=== PATIENT | female | born 1945 | race Caucasian/White ===

== ENCOUNTER 2019-09-04 09:46 | Inpatient (IN) ==
--- NOTE | 2019-08-24 12:17 | PAT Medication Instructions ---
Medication Instructions Date of Service August 24, 2019 Home Medications Purelife Keto 1 tab PO QPM aspirin [Aspirin Low Dose] 81 mg PO QAM duloxetine 30 mg PO QAM ergocalciferol (vitamin D2) [Vitamin D2] 1,250 mcg PO MONTHLY levothyroxine 100 mcg PO QAM losartan 25 mg PO QAM metformin 1,000 mg PO BID multivitamin 1 tab PO QAM omega 2-ekj-vgr-fish oil [Fish Oil] 1 cap PO DAILY omeprazole 20 mg PO QAM ropinirole 0.5 mg PO HS trazodone 50 mg PO HS PRN ASK your prescriber and surgeon aspirin [Aspirin Low Dose] 81 mg PO QAM STOP taking 2 weeks before surgery (or as soon as possible if surgery is within 2 weeks) Purelife Keto 1 tab PO QPM omega 0-sxw-xzi-fish oil [Fish Oil] 1 cap PO DAILY STOP taking 24 hours before surgery ropinirole 0.5 mg PO HS DO NOT take the morning of surgery ergocalciferol (vitamin D2) [Vitamin D2] 1,250 mcg PO MONTHLY losartan 25 mg PO QAM metformin 1,000 mg PO BID multivitamin 1 tab PO QAM Take morning of surgery With a small sip of water, OTHERWISE NOTHING TO EAT OR DRINK AFTER MIDNIGHT: duloxetine 30 mg PO QAM levothyroxine 100 mcg PO QAM omeprazole 20 mg PO QAM Take evening before surgery metformin 1,000 mg PO BID trazodone 50 mg PO HS PRN (if needed) Other Notes If you have any questions please call us at [phone] or [phone] or [phone] or [phone]
--- NOTE | 2019-08-25 12:10 | Anesthesiology Consultation ---
Date of Service August 25, 2019 Assessment & Plan (1) Encounter for pre-operative examination: Chart Review Chart Review: Acceptable Risk for Surgery and Patient seen in Pre Admission Testing 2016 ECHO showed moderate right to left shunt- has not followed up with cardio since that time but states PCP is aware (no mention is PCP note of PFO). Dis cussed with Dr. Eastman who recommended cardio clearance prior to surgery Pt had left TKA 05/04/19 at [facility]- post op day #1 become confused and lethargic. Found to be hypotensive with KAIDEN - admitted to ICU x 7 days. Per records- cause of hypotension unknown but patient feels it was related to being over medicated with blood pressure and pain medications. Per patient- was given BP meds pre operatively and perioperatively as well as pain medications. Pt anxious about upcoming surgery and would like caution used with both BP meds and pain meds. Seen by PCP 08/21/19= " medically optimized for surgery". Educated on BMI. Type II DM- A1C at goal. Depression stable. HTN at goal. Dysplipidemia- not on statin. Hypothyroidism- euthyroid, Barretts- stable Pt again seen by PCP 08/26/19= for LE edema- occurring to bilateral feet- worse in evening. No chest pain, dyspnea. No pitting edema. Lungs clear. Encouraged LE elevation, compression stockings and Lasix x five days- will follow up with PCP if not improving Consults Requested cardiac (secondary to moderate right to left shunt on 2015 ECHO ) Teaching & Discussion Pre-Anesthesia Teaching/Discussion Notes: Instructed NPO after midnight before surgery,except medications with 15 cc of water. Medication instructions provided according to the PAT guidelines. History Surgery Operation Date: 09/04/19 12:45 Proposed Procedures p L2-S1 Decompression Fusion, Spinal Cord Monitoring - Serg Jacome DO Height/Weight Height: 4 ft 10 in Weight: 91.4 kg Allergies Allergy/AdvReac Type Severity Reaction Status Date / Time niacin Allergy Intermediate HIVES Verified 06/07/15 09:42 morphine Allergy Mild NAUSEA/VOMI Verified 08/24/19 10:29 TING/HIVES codeine Allergy Unknown HIVES Unverified 06/07/15 09:42 Medications Home Medications Medication Instructions Recorded Confirmed Last Taken Purelife Keto 1 tab PO QPM 08/24/19 08/24/19 Unknown aspirin [Aspirin Low Dose] 81 mg PO QAM 08/24/19 08/24/19 Unknown duloxetine 30 mg PO QAM 08/24/19 08/24/19 Unknown ergocalciferol (vitamin D2) 1,250 mcg PO MONTHLY 08/24/19 08/24/19 Unknown [Vitamin D2] levothyroxine 100 mcg PO QAM 08/24/19 08/24/19 Unknown losartan 25 mg PO QAM 08/24/19 08/24/19 Unknown metformin 1,000 mg PO BID 08/24/19 08/24/19 Unknown multivitamin 1 tab PO QAM 08/24/19 08/24/19 Unknown omega 5-hkw-lbr-fish oil [Fish Oil] 1 cap PO DAILY 08/24/19 08/24/19 Unknown omeprazole 20 mg PO QAM 08/24/19 08/24/19 Unknown ropinirole 0.5 mg PO HS 08/24/19 08/24/19 Unknown trazodone 50 mg PO HS PRN 08/24/19 08/24/19 Unknown Past Medical History Medical History (Updated 08/26/19 @ 16:08 by Elayne Lanza PA-C) Cardiac murmur History of- no murmur noted at PAT visit on 08/25/19 Chronic back pain Degenerative disc disease Depression Diabetes mellitus, type 2 NIDDM GERD (gastroesophageal reflux disease) Barretts- Stable and controlled Hiatal hernia History of anesthesia reaction Questionable reaction: Pt had Left TKA May 04, 2019 at [facility]- did well with anesthesia but post op day 1 pt became hypotensive which caused ARF- spent 1 week post op in ICU- confused with decreased alertness x 20 hours. Kidney function returned to normal prior to discharge to rehab. No current BP issues. Anesthesia records shows no post op complications. Remains unclear what caused hypotension (pt concerned about BP and pain meds) History of bleeding ulcers ~2013- no issues since Hyperlipidemia Diet controlled Hypertension Hypothyroidism IBS (irritable bowel syndrome) Osteoarthritis Restless leg syndrome Exercise / Class Metabolic Activity III < 4 Walking/Shop/Light housework (Uses walker to ambulate - no chest pain or SOB with flat surfaces ) Past Family History Family History (Updated 08/24/19 @ 10:56 by Krystal Bautista RN) Mother FHx: renal cell carcinoma FHx: uterine cancer Other No family history of adverse response to anesthesia Past Surgical History Surgical History (Updated 08/24/19 @ 10:54 by Krystal Bautista RN) History of appendectomy History of cataract surgery bilateral History of cholecystectomy History of colonoscopy History of esophagogastroduodenoscopy (EGD) History of total hip arthroplasty bilateral History of total knee replacement Bilateral S/P epidural steroid injection Past Anesthesia History No Hx of Anesthesia Complications (with exception to hypotension episode post op day #1 from left TKA ) and No Family Hx of Anesthesia Complications (with exception to mother - aggressive with morphine ) History of PONV No Hx of PONV and No Hx of Motion Sickness Social History Smoking Status: Former smoker (Light smoker x several years ) tobacco type: cigarettes Do You Dip or Chew Tobacco: No Smoking End Date: 1967 Hx Alcohol Use: Yes Alcohol type: wine alcohol intake frequency: holidays/special occasions only Hx Substance Use: No substance use type: does not use Review of Systems Increased LE edema- bilateral LEs. No significant SOB. Mild productive cough. Reflux- well controlled and stable Hx of blood transfusion- s/p D&C 35 years ago Patient denies chest pain, shortness of breath, dyspnea on exertion, wheezing, palpitations. No hx of seizures, stroke, SD, apnea/snoring. No hx of blood clots. No recent steroid use Physical Exam Vital Signs VITALS BP 110/75 P 92 TEMP 98.0 SP02 96% RESP 16 Constitutional + morbidly obese; no acute distress ENMT Mouth: + dentures and + small oral opening; no TMJ clicking, no chipped teeth and no loose teeth Thyromental Distance: < 3.5 Finger Breadths (3.0) Mallampati Class: II Full upper dentures Neck + short neck; neck extension not limited Respiratory normal respiratory effort; no respiratory distress Auscultation: lungs clear to auscultation bilaterally; no wheezes Cardiovascular Rate/Rhythm: regular rate and regular rhythm Heart Sounds: no murmur Vessels: no carotid bruit Extremities: + edema (1+ pitting edema to bilateral feet- no erythema, warmth. Calf squeeze neg) Musculoskeletal Spine: no pain with cervical ROM Neurologic moves all extremities Psychiatric Orientation: alert Testing Laboratory Results 08/25/19 11:29 PT 10.8 Seconds (9.0-12.0) 08/25/19 11:29 INR 1.1 (0.9-1.1) 08/25/19 11:29 APTT 26.0 Seconds (21.0-31.0) 08/25/19 11:29 Urine Color Yellow 08/25/19 11:29 Urine Appearance Clear (Clear) 08/25/19 11:29 Urine pH 5.0 (4.5-7.5) 08/25/19 11:29 Ur Specific [place] 1.019 (1.000-1.030) 08/25/19 11:29 Urine Protein Negative (Negative) 08/25/19 11:29 Urine Glucose (UA) Negative (Negative) 08/25/19 11:29 Urine Ketones Negative (Negative) 08/25/19 11: Urine Nitrite Negative (Negative) 08/25/19 11: Ur Leukocyte Esterase Negative (Negative) 08/25/19 11:29 Blood Type O Negative 08/25/19 11:29 Antibody Screen NEGATIVE 08/25/19 11:29 07/28/19= SODIUM: 140 POTASSIUM: 4.6 CHLORIDE: 100 CO2: 26 BUN: 9 CREATININE: 0.6 GLUCOSE: 167 HGB A1C= 7.0 TSH= 4.25 (pt had med adjustments) Electrocardiogram Date: 05/06/19 SR with 1st degree AVB. Inferior infarct (EKG from 2013 included- by personal visual comparison- EKG's similiar in appearance showing possible inferior infarct. Has had subsequent ECHO in 2016 without noted issues) Chest X-Ray Date: 08/25/19 Findings: + NAD Echocardiogram Date: 01/18/16 EF: 60% LV Function: normal RWMA: + none Grade I diastolic dysfunction. Atrial septal aneurysm. Moderate right to left shunt through the patent foramen ovale at rest by saline contrast injection. Focal thickening of the posterior mitral valve leaflet. Mild MR/TR.
--- NOTE | 2019-08-25 13:09 | XRay Report ---
XR chest Pre-admission PA/Lat CLINICAL HISTORY: pat preoperative COMPARISON STUDY: 03/03/2013 FINDINGS: The bones soft tissues and hemidiaphragms are normal. The cardiomediastinal silhouette is n ormal. The lungs are clear. The pulmonary vasculature is normal. IMPRESSION: Negative chest. ACT 112: Negative or not required by law. The above report was generated using voice recognition software. It may contain grammatical, syntax or spelling errors. Electronically signed by: Danilo Decker M.D. 08/25/2019 1:08 PM
[2019-08-25 13:53] LABS: Appearance Urine Clear (Clear); Basophils # (auto) 0.03 K/uL (0-0.2); Basophils % (auto) 0.6 %; Bilirubin Urine Negative (Negative); Blood Urine Negative (Negative); Color Urine Yellow; Eosinophils # (auto) 0.08 K/uL (0-0.5); Eosinophils % (auto) 1.7 %; Glucose Urine UA Negative (Negative); Hematocrit (blood only) 41.6 % (37-47); Hemoglobin 13.7 g/dL (12.0-16.0); Immature Granulocytes # (auto) 0.05 K/uL (0.00-0.02); Ketones Urine Negative (Negative); Leukocyte Esterase Urine Negative (Negative); Lymphocytes # (auto) 1.68 K/uL (1.2-3.4); Lymphocytes % (auto) 34.9 %; Mean Corpuscular Hemoglobin 28.5 pg (25-34); Mean Corpuscular Hgb Conc 32.9 g/dL (32-36); Mean Corpuscular Volume 86.5 fL (80-100); Mean Platelet Volume 10.3 fL (7.4-10.4); Monocytes # (auto) 0.41 K/uL (0.11-0.59); Monocytes % (auto) 8.5 %; Neutrophils # (auto) 2.57 K/uL (1.4-6.5); Neutrophils % (auto) 53.3 %; Nitrite Urine Negative (Negative); Platelet Count 185 K/uL (130-400); Protein Urine Negative (Negative); RDW Coefficient of Variation 14.7 % (11.5-14.5); RDW Standard Deviation 46.7 fL (36.4-46.3); Red Blood Count 4.81 M/uL (4.2-5.4); Specific Gravity Urine 1.019 (1.000-1.030); Urobilinogen Urine Negative (Negative); White Blood Count 4.82 K/uL (4.8-10.8)
[2019-08-25 14:04] LABS: INR 1.1 (0.9-1.1); Prothrombin Time 10.8 Seconds (9.0-12.0)
[~2019-09-04 09:46] MED LIST: ACETAMINOPHEN 500 MG TAB PO SCH; CEFAZOLIN 2000MG 2,000 MG/15 ML SYR IV SCH; CeleBREX 200 MG CAP PO SCH; GABAPENTIN 300 MG CAP PO SCH; LR 15ML/HR IV SCH
[2019-09-04] MEDS ORDERED: PROPOFOL IV EMULSION 10 MG/ML 20 ML VIAL IV ONE (11:18)
[2019-09-04] MEDS ORDERED: NEOSTIGMINE METHYLSULFATE 1 MG/ML 10ML VIAL ONE (11:18)
[2019-09-04] MEDS ORDERED: ONDANSETRON INJ 2 MG/ML 2 ML VIAL ONE (11:18)
[2019-09-04] MEDS ORDERED: GLYCOPYRROLATE 0.2 MG/ML VIAL ONE (11:18)
[2019-09-04] MEDS ORDERED: MIDAZOLAM HCL 1 MG/ML 2ML VIAL ONE (11:18)
[2019-09-04] MEDS ORDERED: fentaNYL citrate 100 MCG/2 ML VIAL ONE ×3 (11:18→15:36)
[2019-09-04] MEDS ORDERED: DEXAMETHASONE SOD INJ 4 MG/ML VIAL ONE (11:18)
[2019-09-04] MEDS ORDERED: LIDOCAINE HCL 2% 2 ML VIAL/AMP(20MG/ML) INFIL ONE (11:18)
[2019-09-04] MEDS ORDERED: ePHEDrine sulfate 50 MG/ML AMP IV PRN (11:22)
[2019-09-04] MEDS ORDERED: ONDANSETRON INJ 2 MG/ML 2 ML VIAL IV PRN ×2 (11:22→16:45)
[2019-09-04] MEDS ORDERED: fentaNYL citrate 100 MCG/2 ML VIAL IV PRN (11:22)
[2019-09-04] MEDS ORDERED: ATROPINE SULFATE 0.1 MG/ML 10ML SYR IV PRN (11:22)
--- NOTE | 2019-09-04 11:26 | History & Physical Bridge Note ---
Date of Service September 04, 2019 History & Physical Bridge Note I have examined the patient, reviewed the History & Physical and in the interval since the performance of the History & Physical I have noted the following changes of clinical significance: no changes noted
--- NOTE | 2019-09-04 11:27 | History & Physical Report ---
Date of Service September 04, 2019 Assessment & Plan (1) Neurogenic claudication due to lumbar spinal stenosis: L2-S1 decompression fusion Present on Admission?: Yes History of Present Illness Chief Complaint: Back and leg pain Primary Care Provider: Gregory Howard MD This is a 73-year-old female who presents with chronic persistent back and bilateral leg pain. After failing extensive course of nonoperative care she is here for surgical intervention. Allergies Allergy/AdvReac Type Severity Reaction Status Date / Time niacin Allergy Intermediate HIVES Verified 09/04/19 10:21 morphine Allergy Mild NAUSEA/VOMI Verified 09/04/19 10:21 TING/HIVES codeine Allergy Unknown HIVES Unverified 09/04/19 10:21 Home Medications Home Medications Medication Instructions Recorded Confirmed Type Purelife Keto 1 tab PO QPM 08/24/19 09/04/19 History aspirin [Aspirin Low Dose] 81 mg PO QAM 08/24/19 09/04/19 History duloxetine 30 mg PO QAM 08/24/19 09/04/19 History ergocalciferol (vitamin D2) 1,250 mcg PO MONTHLY 08/24/19 09/04/19 History [Vitamin D2] levothyroxine 100 mcg PO QAM 08/24/19 09/04/19 History losartan 25 mg PO QAM 08/24/19 09/04/19 History metformin 1,000 mg PO BID 08/24/19 09/04/19 History multivitamin 1 tab PO QAM 08/24/19 09/04/19 History omega 3-fwm-znl-fish oil [Fish Oil] 1 cap PO DAILY 08/24/19 09/04/19 History omeprazole 20 mg PO QAM 08/24/19 09/04/19 History ropinirole 0.5 mg PO HS 08/24/19 09/04/19 History trazodone 50 mg PO HS PRN 08/24/19 09/04/19 History Past Med/Surg History Medical History (Updated 09/04/19 @ 11:27 by Serg Jacome DO) Cardiac murmur History of- no murmur noted at PAT visit on 08/25/19 Chronic back pain Degenerative disc disease Depression Diabetes mellitus, type 2 NIDDM GERD (gastroesophageal reflux disease) Barretts- Stable and controlled Hiatal hernia History of anesthesia reaction Questionable reaction: Pt had Left TKA May 04, 2019 at [facility]- did well with anesthesia but post op day 1 pt became hypotensive which caused ARF- spent 1 week post op in ICU- confused with decreased alertness x 20 hours. Kidney function returned to normal prior to discharge to rehab. No current BP issues. Anesthesia records shows no post op complications. Remains unclear what caused hypotension (pt concerned about BP and pain meds) History of bleeding ulcers ~2013- no issues since Hyperlipidemia Diet controlled Hypertension Hypothyroidism IBS (irritable bowel syndrome) Osteoarthritis Restless leg syndrome Surgical History (Updated 08/24/19 @ 10:54 by Krystal Bautista RN) History of appendectomy History of cataract surgery bilateral History of cholecystectomy History of colonoscopy History of esophagogastroduodenoscopy (EGD) History of total hip arthroplasty bilateral History of total knee replacement Bilateral S/P epidural steroid injection Family History (Updated 08/24/19 @ 10:56 by Krystal Bautista RN) Mother FHx: renal cell carcinoma FHx: uterine cancer Other No family history of adverse response to anesthesia Social History Preferred Language: Bolivian Communication Ability: Effective Mortar Mixer Required: No Beliefs That Will Affect Care: None Current Living Situation: Alone Other Information That Helps Us Care for You: No Feels Safe at Home: Yes Safety Concerns: Feels Safe At This Time Smoking Status: Former smoker (Light smoker x several years ) Tobacco Type: cigarettes ; Do You Dip or Chew Tobacco: No ; Smoking End Date: 1967 ; Second Hand Exposure: Yes (hx) ; Tobacco Cessation Education Requested by Patient: No Hx Alcohol Use: Yes Alcohol type: wine Hx Substance Use: No Physical Exam Physical Exam: Patient is alert and oriented neurologically intact. Results & Data Vital Signs (Past 12 Hours) Vital Signs Temp Pulse Resp BP Pulse Ox 09/04/19 10:28 36.7 C 85 18 145/82 H 95
[2019-09-04] MEDS ORDERED: BUPIVACAINE/EPINEPHRINE 0.5% MPF 1:200,000 10 ML VIAL ONE (11:43)
[2019-09-04] MEDS ORDERED: BACITRACIN INJ 50,000 UNIT VIAL ONE (11:44)
[2019-09-04] MEDS ORDERED: FLOSEAL HEMOSTATIC MATRIX 10ML TOP ONE (13:04)
[2019-09-04] MEDS ORDERED: ROCURONIUM BROMIDE 10 MG/ML 5 ML VIAL ONE (13:08)
[2019-09-04] MEDS ORDERED: ePHEDrine sulfate 50 MG/ML SYR ONE (13:34)
[2019-09-04] MEDS ORDERED: PHENYLEPHRINE 100MCG/ML 5ML SYR ONE (13:34)
[2019-09-04] MEDS ORDERED: PHENYLEPHRINE HCL 10 MG/ML VIAL ONE (13:34)
[2019-09-04] MEDS ORDERED: ALBUMIN HUMAN 5% 12.5 GM/250 ML VIAL IV ONE (14:21)
--- NOTE | 2019-09-04 15:13 | Operative Report ---
Post Operative Report Pre & Post Diagnosis Operation Date: 09/04/19 12:05 Pre-Op Diagnosis: Neurogenic Claudication Due To Lumbar Spinal Stenosis Post-Op Diagnosis: Neurogenic Claudication Due To Lumbar Spinal Stenosis I identified the patient and participated in the time-out.: Yes Procedure Operation Date: 09/04/19 12:05 Actual Procedures #1 lumbar decompression with bilateral medial facetectomies and foraminotomies L2-3, L3-4, L4-5, L5-S1. #2 posterior spinal fusion L2-3, L3-4, L4-5, L5-S1. #3 posterior segmental instrumentation L2-S1. #4 interbody fusion L5-S1. #5 placed a peek cage 11 x 22 mm at L5-S1 vertebra 6 placement locally harvested morselized autograft in the posterior lateral gutters. #7 placement infuse collagen sponge, master graft in the posterior lateral gutters and ostial amp interbody space. Surgeon Serg Jacome, DO Independent Contractor Lupillo Reyna Estimated Blood Loss 500 Findings See Below Patient is 4 feet 11 inches tall weighing over 88 kg with a BMI in excess of 39. The patient's body habitus did add significant technical difficulty throughout the procedure requiring her deepest retractors and longest instruments in order to perform her surgery. She will also require additional follow-up in light of concerns of her healing. This added at least 50% increase to the operative time. Specimens None Indications This is a 73-year-old female who presents above-mentioned diagnosis after failing extensive course of nonoperative care she is here for surgical int ervention. Description of Procedure Patient was met with identified informed consent obtained. Patient was then taken to the operative suite underwent an patient placed in a prone position the Quirino table on top of the Phillip frame. All bony prominences well-padded eyes inspected to ensure no external pressure placed upon the. This point the lumbar spine was prepped and draped in normal sterile fashion. Sharp dissection with the assistance of Bovie cautery performed down to and exposing the lamina and transverse processes of L2 L3-L4-L5 and sacral ala bilaterally. From a caudal cephalad fashion complete laminectomy of L5 L4 L3 and L2 was performed including bilateral medial facetectomies and foraminotomies addressing severe spinal dede nosis. Pedicle screws were then placed in L2 L3-L4-L5 and S1 levels bilaterally with assistance of fluoroscopy the proper sized kodi placed. Believe a trans- foramen approach and left complete discectomy of L5-S1 was performed endplates curetted to subcortical bleeding bone and a 11 x 22 mm peek cage filled with osteo-bone graft tapped in position. The rods were then locked into final position bilaterally. The transverse processes of L2 L3-L4-L5 and the sacral ala burred to subcortical bleeding bone. Infuse collagen sponge master graft local autograft was placed in the posterior gutters. 15 round ADRIAN drain inserted. The incision was then closed with 1 Vicryl in the fascia 2-0 Vicryl subcutaneously and 4 Monocryl for final skin closure. Steri-Strip sterile dressings placed. Patient will continue PACU stable addition. Please note Lupillo Reyna was present at the entire procedure involved the patient positioning complex portions of the surgery and final skin closure. Lastly spi nal cord monitoring was utilized that the procedure no changes noted. I attest to the content of the Intraoperative Record and any orders documented therein. Any exceptions are noted below.
--- NOTE | 2019-09-04 15:36 | Fluoroscopy Report ---
FL lumbar spine 2-3V CLINICAL HISTORY: L2-S1 DECOMPRESSION FUSION COMPARISON STUDY: Lumbar spine MRI December 06, 2007. FLUOROSCOPY TIME: 36 seconds. FLUOROSCOPIC IMAGES: 3 FINDINGS: Exact numbering is difficult on this exam. There is multilevel discectomy with posterior de compression and 5 level bilateral pedicle screw fusion. Hardware is intact. There are no unexpected r adiopaque foreign bodies. IMPRESSION: Fluoroscopy provided for discectomy and multilevel fusion, as described above. ACT 112: Negative or not required by law. Electronically signed by: Slick Moore M.D. 09/04/2019 3:35 PM
--- NOTE | 2019-09-04 16:24 | Anesthesiology Progress Note ---
Date of Service September 04, 2019 Anesthesia Post Procedure Vital Signs Vital Signs: Temp Pulse Pulse Resp BP BP Pulse Ox 09/04/19 16:20 36.7 C 88 16 102/70 96 09/04/19 16:10 91 H 16 116/88 95 09/04/19 16:00 86 16 107/83 97 09/04/19 15:50 84 16 120/87 98 09/04/19 15:42 36.3 C L 80 16 123/59 L 98 09/04/19 10:28 36.7 C 85 18 145/82 H 95 Pain Intensity Back: Pain Intensity: 3 Transfer of Care Handoff Completed per policy Notes Mental Status: alert / awake / arousable Patient Amnestic to Procedure: Yes Nausea / Vomiting: adequately controlled Pain: adequately controlled Airway Patency, RR, SpO2: stable & adequate BP & HR: stable & adequate Hydration State: stable & adequate Anesthetic Complications: no major complications apparent
[2019-09-04] MEDS ORDERED: bisacodyL 10 MG SUPP PR PRN (16:45)
[2019-09-04] MEDS ORDERED: METOCLOPRAMIDE HCL INJ 5 MG/ML 2 ML VIAL IV PRN (16:45)
[2019-09-04] MEDS ORDERED: FAMOTIDINE 20 MG TAB PO PRN (16:45)
[2019-09-04] MEDS ORDERED: NALOXONE HCL 0.4 MG/1 ML VIAL/CARP IV PRN (16:45)
[2019-09-04] MEDS ORDERED: ALUMINUM/MAGNESIUM SUSP 30 ML UDC PO PRN (16:45)
[2019-09-04] MEDS ORDERED: TRAZODONE HCL 50 MG TAB PO PRN (16:45)
[2019-09-04] MEDS ORDERED: ONDANSETRON 4 MG OD TAB PO PRN (16:45)
[2019-09-04] MEDS ORDERED: MAGNESIUM HYDROXIDE SUSP 30 ML UDC PO PRN (16:45)
[2019-09-04] MEDS ORDERED: DO NOT ADMINISTER FLU VACCINE PRN (16:45)
[2019-09-04] MEDS ORDERED: SOD PHOSPHATE/SOD BIPHOSPHATE ENEMA 132 ML BTL PR PRN (16:45)
[2019-09-04] MEDS ORDERED: LORazepam 0.5 MG/1 ML VIAL IV PRN (16:45)
[2019-09-04] MEDS ORDERED: ACETAMINOPHEN 1,000 MG/100 ML VIAL IV PRN (16:45)
[2019-09-04] MEDS ORDERED: HYDROmorphone INJ 0.5 MG/0.5 ML SYR IV PRN (16:45)
[2019-09-04] MEDS ORDERED: HYDROmorphone INJ 1 MG/ML SYRINGE IV PRN (16:45)
[2019-09-04] MEDS ORDERED: LORazepam 0.5 MG TAB PO PRN (16:45)
[2019-09-04] MEDS ORDERED: PROMETHAZINE HCL 12.5 MG in SODIUM CHLORIDE 0.9% 50 ML IV PRN (16:45)
[2019-09-04] MEDS ORDERED: DO NOT ADMINISTER PNEUMOCOCCAL VACCINE PRN (16:45)
[2019-09-04] MEDS: OXYCODONE HCL IR 5 MG TAB (IMMEDIATE RELEASE) PO PRN (17:07)
[2019-09-04] MEDS ORDERED: SODIUM CHLORIDE 0.9% 1000ML 1,000 ML IV SCH (17:15)
--- NOTE | 2019-09-04 17:30 | Hospitalist Consultation ---
Date of Consultation September 04, 2019 Assessment & Plan (1) Neurogenic claudication due to lumbar spinal stenosis: Status post L2-S1 decompression fusion POD# 0 Tolerated procedure well Pain control and bowel regimen by orthopedics Activity and wound care, by orthopedics DVT prophylaxis by orthopedics - patient on aspirin for history of PFO, recommended by cardiology on preop eval - strict DVT prophylaxis needed -Monitor H&H, for postop blood loss anemia -Monitor hemodynamic status (2) DVT prophylaxis: History of PFO At home on aspirin Per cardiology preop eval, strict DVT prophylaxis needed Aspirin ordered, currently using SCDs -further DVT ppx per orthopedic service (3) GERD (gastroesophageal reflux disease): History of Benites's esophagus - at home on omeprazole, will switch to pantoprazole while inpt (4) History of bleeding ulcers: No current issues, continue PPI (5) Diabetes mellitus, type 2: Seems to be well controlled on metformin at home -We will continue to monitor, and place on sliding scale insulin (6) Hypertension: Previously on lisinopril, recently switched to losartan due to insomnia believed to be secondary to lisinopril -Blood pressure currently on lower side -We will hold losartan for now, will evaluate in the morning (7) Hypothyroidism: - Continue home levothyroxine -No current issues (8) Hyperlipidemia: Did not tolerate statin in the past, currently diet controlled (9) BMI 39.0-39.9,adult: -Lifestyle changes encouraged (10) Depression: -Continue home duloxetine, no current issues Thank you for this consultation. We will follow the patient with you during their hospital stay. You can reach a member of the [facility] Hospitalist Team 28/01 via pager @ [phone]. History of Present Illness Reason for Consultation: Post-op medical management Requesting Physician: Dr. Serg Jacome Attending Physician: William Mix MD History of Present Illness 73-year-old morbidly obese female, with history of hypothyroidism, hyperlipidemia, hypertension, Benites's esophagus, depression, and longstanding history of back pain and bilateral lower extremity pain/weakness, who presented for surgical treatment of her neurogenic claudication. Patient is now status post L2-S1 decompression fusion, tolerated procedure well. Prior to procedure, she underwent preop evaluation by cardiology, echocardiogram was obtained at that time. Patient has a history of a PFO and has been on aspirin, per cardiology recommendation, strict DVT prophylaxis is needed. Her other chronic medical conditions seems to be well controlled. Patient takes duloxetine for depression, and currently denies any issues with that. For diabetes, she is on metformin and says that she is well controlled. For hyperlipidemia she was started on statin in the past but did not tolerate, and therefore is only diet controlled. For hypertension patient was on lisinopril, however reported insomnia from lisinopril, and was recently switched to losartan. Patient says that she has not had any issues with insomnia since then. Patient also has history of restless leg syndrome, currently denies any symptoms. Patient is currently lying in bed, in no acute distress, comfortable. Her son is at the bedside. Patient denies any chest pain, shortness of breath, abdominal pain, nausea or vomiting. She also denies any lightheadedness or dizziness. She has some postoperative back pain, however currently seems to be well-controlled. She is able to move her lower extremities, there is no sensory loss noted. Allergies Allergy/AdvReac Type Severity Reaction Status Date / Time niacin Allergy Intermediate HIVES Verified 09/04/19 10:21 morphine Allergy Mild NAUSEA/VOMI Verified 09/04/19 10:21 TING/HIVES codeine Allergy Unknown HIVES Unverified 09/04/19 10:21 Home Medications Home Medications Medication Instructions Recorded Confirmed Type Purelife Keto 1 tab PO QPM 08/24/19 09/04/19 History aspirin [Aspirin Low Dose] 81 mg PO QAM 08/24/19 09/04/19 History duloxetine 30 mg PO QAM 08/24/19 09/04/19 History ergocalciferol (vitamin D2) 1,250 mcg PO MONTHLY 08/24/19 09/04/19 History [Vitamin D2] levothyroxine 100 mcg PO QAM 08/24/19 09/04/19 History losartan 25 mg PO QAM 08/24/19 09/04/19 History metformin 1,000 mg PO BID 08/24/19 09/04/19 History multivitamin 1 tab PO QAM 08/24/19 09/04/19 History omega 4-[id number]-egw-fish oil [Fish Oil] 1 cap PO DAILY 08/24/19 09/04/19 History omeprazole 20 mg PO QAM 08/24/19 09/04/19 History ropinirole 0.5 mg PO HS 08/24/19 09/04/19 History trazodone 50 mg PO HS PRN 08/24/19 09/04/19 History Patient History Medical History Cardiac murmur History of- no murmur noted at PAT visit on 08/25/19 Chronic back pain Degenerative disc disease Depression Diabetes mellitus, type 2 NIDDM GERD (gastroesophageal reflux disease) Barretts- Stable and controlled Hiatal hernia History of anesthesia reaction Questionable reaction: Pt had Left TKA May 04, [address] [facility]- did well with anesthesia but post op day 1 pt became hypotensive which caused ARF- spent 1 week post op in ICU- confused with decreased alertness x 20 hours. Kidney function returned to normal prior to discharge to rehab. No current BP issues. Anesthesia records shows no post op complications. Remains unclear what caused hypotension (pt concerned about BP and pain meds) History of bleeding ulcers ~2013- no issues since Hyperlipidemia Diet controlled Hypertension Hypothyroidism IBS (irritable bowel syndrome) Osteoarthritis Restless leg syndrome Surgical History History of appendectomy History of cataract surgery bilateral History of cholecystectomy History of colonoscopy History of esophagogastroduodenoscopy (EGD) History of total hip arthroplasty bilateral History of total knee replacement Bilateral S/P epidural steroid injection Family History Mother FHx: renal cell carcinoma FHx: uterine cancer Other No family history of adverse response to anesthesia Social History Preferred Language: Arabic Communication Ability: Effective Alteration Hand Required: No Beliefs That Will Affect Care: None Current Living Situation: Alone Other Information That Helps Us Care for You: No Feels Safe at Home: Yes Safety Concerns: Feels Safe At This Time Smoking Status: Former smoker (Light smoker x several years ) Tobacco Type: cigarettes ; Do You Dip or Chew Tobacco: No ; Smoking End Date: 1966 ; Second Hand Exposure: Yes (hx) ; Tobacco Cessation Education Requested by Patient: No Hx Alcohol Use: Yes Alcohol type: wine Hx Substance Use: No Review of Systems Review of Systems: All systems reviewed & are unremarkable except as noted in HPI & below Constitutional: no fever and no chills Respiratory: no cough and no dyspnea Cardiovascular: no chest pain, no palpitations and no edema Gastrointestinal: no abdominal pain, no nausea and no vomiting Physical Exam Physical Exam: Elderly obese female lying in bed, in NAD Constitutional: well developed, well nourished and + morbidly obese; not ill appearing Eyes: PERRL, conjunctivae normal, anicteric sclerae EOM intact bilaterally ENMT: external ear and nose normal, oropharynx normal Neck: normal visual inspection Respiratory: normal respiratory effort, lungs clear to auscultation normal respiratory effort Auscultation: no crackles, no rales, no rhonchi and no wheezes Cardiovascular: RRR, no murmur, no edema Chest (Breasts): Chest: normal inspection of chest Gastrointestinal (Abdomen): Inspection/Auscultation: abdomen normal to inspection and normal bowel sounds; abdomen not distended Percussion/Palpation: abdomen soft and + hernia; abdomen nontender and no guarding obese Musculoskeletal: Head/Neck/Chest: + head abnormal to inspection, nor mocephalic, head atraumatic and neck supple Extremities: extremities normal to inspection moves extremities spontaneously Skin: no rashes, warm and dry Neurologic: PERRL, EOMI, accommodation nl, no face palsy, no dysarthria moves all extremities Psychiatric: A+Ox3, euthymic affect Genitourinary: Benito catheter placed, drains clear yellow urine Results & Data ([facility]) Vital Signs (Past 12 Hours) Vital Signs Temp Pulse Pulse Pulse Resp BP BP 09/04/19 17:10 36.3 C L 84 16 118/75 09/04/19 16:35 36.5 C 86 14 134/82 09/04/19 16:20 36.7 C 88 16 102/70 09/04/19 16:10 91 H 16 116/88 09/04/19 16:00 86 16 107/83 09/04/19 15:50 84 16 120/87 09/04/19 15:42 36.3 C L 80 16 123/59 L 09/04/19 10:28 36.7 C 85 18 145/82 H Pulse Ox 09/04/19 17:10 100 09/04/19 16:35 98 09/04/19 16:20 96 09/04/19 16:10 95 09/04/19 16:00 97 09/04/19 15:50 98 09/04/19 15:42 98 09/04/19 10:28 95 Laboratory Results 09/04/19 09/04/19 09/04/19 Range/Units 15:44 10:14 10:12 POC Glucose 218 H 241 H (70-99) mg/dl Blood Type O Negative Antibody Screen NEGATIVE Crossmatch See Detail Medications Administered Current Inpatient Medications Acetaminophen (Tylenol) 1,000 mg PO PREOP JENNIFER Stop: 09/04/19 18:00 Last Admin: 09/04/19 10:46 Dose: 1,000 mg Documented by: Acetaminophen (Tylenol) 1,000 mg PO Q8H PRN PRN Reason: MILD Pain Scale 1,2,3 & Pre PT Stop: 10/04/19 16:44 Al Hydrox/Mg Hydrox/Simethicone (Maalox) 30 ml PO Q6H PRN PRN Reason: Dyspepsia Stop: 10/04/19 16:44 Aspirin (Ecotrin Ectab) 81 mg PO QAM [facility] Stop: 10/05/19 08:59 Bisacodyl (Dulcolax) 10 mg AR DAILY PRN PRN Reason: Constipation Stop: 10/04/19 16:44 Celecoxib (Celebrex) 200 mg PO PREOP [facility] Stop: 09/04/19 18:00 Last Admin: 09/04/19 10:47 Dose: 200 mg Documented by: Diphenhydramine HCl (Benadryl Capsule) 25 mg PO Q6H PRN PRN Reason: Allergic Rhinitis/Insomnia Stop: 10/04/19 16:44 Duloxetine HCl (Cymbalta) 30 mg PO QAM [facility] Stop: 10/05/19 08:59 Famotidine (Pepcid) 20 mg PO Q12H PRN PRN Reason: Dyspepsia Stop: 10/04/19 16:44 Gabapentin (Neurontin) 300 mg PO PREOP JENNIFER Stop: 09/04/19 18:00 Last Admin: 09/04/19 10:47 Dose: 300 mg Documented by: Hydromorphone HCl (Dilaudid) 0.5 mg IV Q3H PRN PRN Reason: MOD pain (scale 4-6) & Pre PT Stop: 09/18/19 16:44 Hydromorphone HCl (Dilaudid) 1 mg IV Q3H PRN PRN Reason: severe pain (scale 7-10) Stop: 09/18/19 16:44 Hydroxyzine HCl (Vistaril) 25 mg PO Q8H PRN PRN Reason: Anxiety Stop: 10/04/19 16:44 Lactated Ringer's (Lr) 1,000 mls @ 15 mls/hr IV .Q24H JENNIFER Stop: 09/05/19 05:59 Last Infusion: 09/04/19 12:06 Dose: Infused Documented by: Cefazolin Sodium (Ancef 2000mg) 2,000 mg in 15 mls @ 3.75 mls/min IV PREOP JENNIFER; Protocol Stop: 09/04/19 18:00 Last Admin: 09/04/19 12:06 Dose: 3.75 mls/min Documented by: Promethazine HCl 12.5 mg/ (Sodium Chloride) 50.5 mls @ 204 mls/hr IV Q6H PRN PRN Reason: Nausea &/or Vomiting Stop: 10/04/19 16:44 Lorazepam (Ativan) 0.5 mg in 1 mls @ 0.5 mls/min IV Q8H PRN PRN Reason: Sedation/Anxiety Stop: 10/04/19 16:44 Sodium Chloride (Nss 1000ml) 1,000 mls @ 100 mls/hr IV .Q10H JENNIFER Stop: 10/04/19 17:14 Last Admin: 09/04/19 17:13 Dose: 100 mls/hr Documented by: Acetaminophen (Ofirmev) 1,000 mg in 100 mls @ 400 mls/hr IV Q8H PRN PRN Reason: MILD Pain Rating 1,2,3 Stop: 09/05/19 16:44 Cefazolin Sodium (Ancef 2000mg) 2,000 mg in 15 mls @ 3.75 mls/min IV Q8H JENNIFER; Protocol Stop: 09/05/19 04:03 Influenza Virus Vaccine Quadrival (Flu Vaccine, Do Not Administer) 1 ea N/A PRN PRN PRN Reason: Notification Stop: 10/04/19 16:44 Levothyroxine Sodium (Synthroid) 100 mcg PO DAILYBB JENNIFER Stop: 10/05/19 06:29 Lorazepam (Ativan) 0.5 mg PO Q8H PRN PRN Reason: Sedation/Anxiety Stop: 10/04/19 16:44 Losartan Potassium (Cozaar) 25 mg PO QAM [facility] Stop: 10/05/19 08:59 Magnesium Hydroxide (Milk Of Magnesia) 30 ml PO DAILY PRN PRN Reason: Constipation Stop: 10/04/19 16:44 Metoclopramide HCl (Reglan) 10 mg IV Q6H PRN PRN Reason: Nausea &/or Vomiting Stop: 10/04/19 16:44 [facility]it[facility]amin Tab) [facility]: 10/05/19 08:59 Naloxone HCl (Narcan) 0.1 mg IV Q5M PRN; Protocol PRN Reason: Oversedation/Resp Depression Stop: 10/04/19 16:44 Non-Formulary Medication ([facility]eprazole) [facility] Stop: 10/05/19 08:59 Ondansetron HCl (Zofran) 4 mg IV Q6H PRN PRN Reason: Nausea &/or Vomiting Stop: 10/04/19 16:44 Ondansetron HCl (Zofran Odt) 4 mg PO Q6H PRN PRN Reason: Nausea Stop: 10/04/19 16:44 Oxycodone HCl (Roxicodone Immediate Rel) 5 - 10 mg PO Q4H PRN PRN Reason: Moderate-Severe Pain & Pre PT Stop: 09/18/19 16:44 Last Admin: 09/04/19 17:07 Dose: 10 mg Documented by: Pneumococcal Polyvalent Vaccine (Pneumococcal Vacc, Do Not Administer) 1 ea N/A PRN PRN PRN Reason: Notification Stop: 10/04/19 16:44 Polyethylene Glycol (Miralax Powder Packet) 17 gm PO Q6 [facility] Stop: 10/05/19 05:59 Ropinirole HCl (Requip) 0.5 mg PO HS [facility] Stop: 10/04/19 20:59 Senna/Docusate Sodium (Senokot S) 2 tab PO HS [facility] Stop: 10/04/19 20:59 Sodium Biphosphate/Sodium Phosphate (Fleet Enema) 132 ml AR ONE PRN PRN Reason: Constipation Stop: 10/04/19 16:44 Tramadol HCl (Ultram) 50 - 100 mg PO Q4H PRN PRN Reason: Moderate-Severe Pain & Pre PT Stop: 10/04/19 16:44 Trazodone HCl (Desyrel) 50 mg PO HS PRN PRN Reason: Insomnia Stop: 10/04/19 16:44
[2019-09-04] MEDS ORDERED: DEXTROSE 50% 50 ML SYRINGE IV PRN (17:34)
[2019-09-04] MEDS ORDERED: GLUCAGON FOR INJ 1 MG VIAL SQ PRN (17:34)
[2019-09-04] MEDS ORDERED: GLUCOSE 10 TABS/TUBE PO PRN (17:34)
[2019-09-04] MEDS ORDERED: CARBOHYDRATES FOR HYPOGLYCEMIA PO PRN (17:34)
[2019-09-04] MEDS ORDERED: GLUCOSE 40% GEL 15 GM TUBE PO PRN (17:34)
[2019-09-04] MEDS: TRAMADOL HCL 50 MG TABLET PO PRN (19:52)
[2019-09-04] MEDS: CEFAZOLIN 2000MG 2,000 MG/15 ML SYR IV SCH (20:18)
[2019-09-04] MEDS: INSULIN ASPART 100 UNITS/ML 3 ML PEN SC SCH (20:33)
[2019-09-04] MEDS: ROPINIROLE HCL 0.25 MG TABLET PO SCH (20:33)
[2019-09-04] MEDS: DOCUSATE SODIUM/SENNA 50/8.6MG TAB PO SCH (20:33)
[2019-09-04] MEDS: ACETAMINOPHEN 500 MG TAB PO PRN (21:56)
[2019-09-05] MEDS: OXYCODONE HCL IR 5 MG TAB (IMMEDIATE RELEASE) PO PRN ×3 (00:03→21:03)
[2019-09-05] MEDS: TRAMADOL HCL 50 MG TABLET PO PRN ×4 (02:41→16:44)
[2019-09-05] MEDS: POLYETHYLENE (MIRALAX) 17 GM PACK PO SCH ×4 (05:29→23:29)
[2019-09-05] MEDS: LEVOTHYROXINE SODIUM 100 MCG TABLET PO SCH (05:30)
[2019-09-05] MEDS: CEFAZOLIN 2000MG 2,000 MG/15 ML SYR IV SCH (05:30)
[2019-09-05 05:42] LABS: Basophils # (auto) 0.02 K/uL (0-0.2); Basophils % (auto) 0.2 %; Eosinophils # (auto) 0.05 K/uL (0-0.5); Eosinophils % (auto) 0.5 %; Hematocrit (blood only) 31.6 % (37-47); Hemoglobin 10.1 g/dL (12.0-16.0); Immature Granulocytes # (auto) 0.08 K/uL (0.00-0.02); Immature Granulocytes % (auto) 0.7 %; Lymphocytes # (auto) 1.92 K/uL (1.2-3.4); Lymphocytes % (auto) 17.6 %; Mean Corpuscular Hemoglobin 27.9 pg (25-34); Mean Corpuscular Volume 87.3 fL (80-100); Mean Platelet Volume 9.4 fL (7.4-10.4); Monocytes # (auto) 1.32 K/uL (0.11-0.59); Monocytes % (auto) 12.1 %; Neutrophils # (auto) 7.52 K/uL (1.4-6.5); Neutrophils % (auto) 68.9 %; Platelet Count 175 K/uL (130-400); RDW Coefficient of Variation 15.2 % (11.5-14.5); RDW Standard Deviation 48.9 fL (36.4-46.3); Red Blood Count 3.62 M/uL (4.2-5.4); White Blood Count 10.91 K/uL (4.8-10.8)
[2019-09-05 06:08] LABS: BUN Creatinine Ratio 22.4 (10-20); Calcium 7.7 mg/dl (8.5-10.1); Creatinine Clr Calc Pharmacy 62.7 ml/min; Est GFR (African American) 89.6; Est GFR (Non-African American) 77.3; Potassium 3.7 mmol/L (3.5-5.1)
[2019-09-05] MEDS: ASPIRIN 81 MG ECTAB PO SCH (08:31)
[2019-09-05] MEDS: MULTIVITAMIN TAB PO SCH (08:31)
[2019-09-05] MEDS: DULOXETINE HCL 30 MG CAP PO SCH (08:31)
[2019-09-05] MEDS: PANTOprazole 40 MG TAB PO SCH (08:31)
[2019-09-05] MEDS: INSULIN ASPART 100 UNITS/ML 3 ML PEN SC SCH ×4 (08:34→20:59)
--- NOTE | 2019-09-05 08:50 | Orthopedic Progress Note ---
Date of Service September 05, 2019 Assessment & Plan (1) Neurogenic claudication due to lumbar spinal stenosis: Patient is stable postop day #1. We will continue to monitor vital signs. We will continue GI and DVT prophylaxis. She will be seen by physical therapy for ambulation gait training. We will continue with discharge planning likely be able to return her to home on Saturday. Admission and Anticipated Discharge Date Admission Date: September 04, 2019 Subjective Patient was seen bedside in room 305. She is resting comfortably. She is postop day 1 status post lumbar decompression and fusion from L2-S1. She has some discomfort in the back itself but the legs already are starting to feel better. Her pain is controlled with medication. She denies any fevers or chi lls or nausea. Physical Exam Physical Exam: On exam patient is alert and oriented. Her dressing is clean dry and intact. Her ADRIAN drain is holding suction is put out 85 cc on the last shift and 70 on the previous. Her calves are supple nontender her abdomen supple nontender. Strength and sensation are grossly intact. Results & Data ([facility]) Vital Signs (Past 12 Hours) Vital Signs Temp Pulse Resp BP BP Pulse Ox 09/05/19 07:34 36.9 C 98 H 18 118/67 91 09/05/19 02:38 36.9 C 94 H 16 101/66 91 09/04/19 23:54 118/74 09/04/19 23:20 36.6 C 91 H 16 96/59 L 91
[2019-09-05] MEDS ORDERED: LOSARTAN POTASSIUM 25 MG TAB PO SCH (09:00)
--- NOTE | 2019-09-05 11:19 | Hospitalist Progress Note ---
Date of Service September 05, 2019 Assessment & Plan (1) Neurogenic claudication due to lumbar spinal stenosis: Status post L2-S1 decompression fusion POD# 0 Tolerated procedure well Pain control and bowel regimen by orthopedics Activity and wound care, by orthopedics DVT prophylaxis by orthopedics - patient on aspirin for history of PFO, recommended by cardiology on preop eval - strict DVT prophylaxis needed -Monitor H&H, for postop blood loss anemia -Monitor hemodynamic status (2) DVT prophylaxis: History of PFO At home on aspirin Per cardiology preop eval, strict DVT prophylaxis needed Aspirin ordered, currently using SCDs -further DVT ppx per orthopedic service (3) GERD (gastroesophageal reflux disease): History of Benites's esophagus - at home on omeprazole, will switch to pantoprazole while inpt (4) History of bleeding ulcers: No current issues, continue PPI (5) Diabetes mellitus, type 2: Seems to be well controlled on metformin at home -We will continue to monitor, and place on sliding scale insulin (6) Hypertension: Previously on lisinopril, recently switched to losartan due to insomnia believed to be secondary to lisinopril -Blood pressure currently on lower side -We will hold losartan for now, will evaluate in the morning (7) Hypothyroidism: - Continue home levothyroxine -No current issues (8) Hyperlipidemia: Did not tolerate statin in the past, currently diet controlled (9) BMI 39.0-39.9,adult: -Lifestyle changes encouraged (10) Depression: -Continue home duloxetine, no current issues Thank you for this consultation. We will follow the patient with you during their hospital stay. You can [facility] via pager @ [phone]. Admission and Anticipated Discharge Date Admission Date: September 04, 2019 Subjective Patient sitting up in chair, in no acute distress, ambulating with a walker from the bathroom. In no acute distress. Says the pain is worse today, however she can handle at this point controlled. Denies any fevers, chills, chest pain, shortness of breath, abdominal pain, nausea or vomiting. Review of Systems Review of Systems: All systems reviewed & are unremarkable except as noted in HPI & below Constitutional: no fever and no chills Respiratory: no cough and no dyspnea Cardiovascular: no chest pain, no palpitations and no edema Gastrointestinal: no abdominal pain, no nausea and no vomiting Physical Exam Physical Exam: Elderly obese female sitting up in the chair, in NAD Constitutional: well developed, well nourished and + morbidly obese; not ill appearing Eyes: PERRL, conjunctivae normal, anicteric sclerae EOM intact bilaterally ENMT: external ear and nose normal, oropharynx normal Neck: normal visual inspection Respiratory: normal respiratory effort, lungs clear to auscultation normal respiratory effort Auscultation: no crackles, no rales, no rhonchi and no wheezes Cardiovascular: RRR, no murmur, no edema Chest (Breasts): Chest: normal inspection of chest Gastrointestinal (Abdomen): Inspection/Auscultation: abdomen normal to inspection and normal bowel sounds; abdomen not distended Percussion/Palpation: abdomen soft and + hernia; abdomen nontender and no guarding Musculoskeletal: Head/Neck/Chest: normocephalic, head atraumatic and neck supple Extremities: extremities normal to inspection Skin: no rashes, warm and dry Neurologic: PERRL, EOMI, accommodation nl, no face palsy, no dysarthria moves all extremities Psychiatric: A+Ox3, euthymic affect Results & Data ([facility]) Vital Signs (Past 12 Hours) Vital Signs Temp Pulse Resp BP BP Pulse Ox 09/05/19 07:34 36.9 C 98 H 18 118/67 91 09/05/19 02:38 36.9 C 94 H 16 101/66 91 09/04/19 23:54 118/74 09/04/19 23:20 36.6 C 91 H 16 96/59 L 91 Laboratory Results 09/05/19 09/05/19 09/05/19 Range/Units 07:57 05:23 05:23 WBC 10.91 H (4.8-10.8) K/uL RBC 3.62 L (4.2-5.4) M/uL Hgb 10.1 L (12.0-16.0) g/dL Hct 31.6 L (37-47) % MCV 87.3 (80-100) fL MCH 27.9 (25-34) pg MCHC 32.0 (32-36) g/dL RDW Std Deviation 48.9 H (36.4-46.3) fL RDW Coeff of Mei 15.2 H (11.5-14.5) % Plt Count 175 (130-400) K/uL MPV 9.4 (7.4-10.4) fL Immature Gran % (Auto) 0.7 % Neut % (Auto) 68.9 % Lymph % (Auto) 17.6 % [place] % (Auto) 12.1 % Eos % (Auto) 0.5 % Baso % (Auto) 0.2 % Immature Gran # (Auto) 0.08 H (0.00-0.02) K/uL Neut # (Auto) 7.52 H (1.4-6.5) K/uL Lymph # (Auto) 1.92 (1.2-3.4) K/uL [place] # (Auto) 1.32 H (0.11-0.59) K/uL Eos # (Auto) 0.05 (0-0.5) K/uL Baso # (Auto) 0.02 (0-0.2) K/uL Sodium 137 (136-145) mmol/L Potassium 3.7 (3.5-5.1) mmol/L Chloride 105 (98-107) mmol/L Carbon Dioxide 24 (21-32) mmol/L Anion Gap 8.0 (3-11) BUN 17 (7-18) mg/dl Creatinine 0.76 (0.6-1.2) mg/dl Est Cr Clr Drug Dosing 62.7 ml/min Est GFR ( Amer) 89.6 Est GFR (Non-Af Amer) 77.3 BUN/Creatinine Ratio 22.4 H (10-20) Glucose 195 H (70-99) mg/dl POC Glucose 222 H (70-99) mg/dl Calcium 7.7 L (8.5-10.1) mg/dl Blood Type Antibody Screen Crossmatch 09/04/19 09/04/19 09/04/19 Range/Units 20:29 17:40 15:44 WBC (4.8-10.8) K/uL RBC (4.2-5.4) M/uL Hgb (12.0-16.0) g/dL Hct (37-47) % MCV (80-100) fL MCH (25-34) pg MCHC (32-36) g/dL RDW Std Deviation (36.4-46.3) fL RDW Coeff of Mei (11.5-14.5) % Plt Count (130-400) K/uL MPV (7.4-10.4) fL Immature Gran % (Auto) % Neut % (Auto) % Lymph % (Auto) % [place] % (Auto) % Eos % (Auto) % Baso % (Auto) % Immature Gran # (Auto) (0.00-0.02) K/uL Neut # (Auto) (1.4-6.5) K/uL Lymph # (Auto) (1.2-3.4) K/uL [place] # (Auto) (0.11-0.59) K/uL Eos # (Auto) (0-0.5) K/uL Baso # (Auto) (0-0.2) K/uL Sodium (136-145) mmol/L Potassium (3.5-5.1) mmol/L Chloride (98-107) mmol/L Carbon Dioxide (21-32) mmol/L Anion Gap (3-11) BUN (7-18) mg/dl Creatinine (0.6-1.2) mg/dl Est Cr Clr Drug Dosing ml/min Est GFR ( Amer) Est GFR (Non-Af Amer) BUN/Creatinine Ratio (10-20) Glucose (70-99) mg/dl POC Glucose 216 H 230 H 218 H (70-99) mg/dl Calcium (8.5-10.1) mg/dl Blood Type Antibody Screen Crossmatch 09/04/19 Range/Units 10:14 WBC (4.8-10.8) K/uL RBC (4.2-5.4) M/uL Hgb (12.0-16.0) g/dL Hct (37-47) % MCV (80-100) fL MCH (25-34) pg MCHC (32-36) g/dL RDW Std Deviation (36.4-46.3) fL RDW Coeff of Mei (11.5-14.5) % Plt Count (130-400) K/uL MPV (7.4-10.4) fL Immature Gran % (Auto) % Neut % (Auto) % Lymph % (Auto) % [place] % (Auto) % Eos % (Auto) % Baso % (Auto) % Immature Gran # (Auto) (0.00-0.02) K/uL Neut # (Auto) (1.4-6.5) K/uL Lymph # (Auto) (1.2-3.4) K/uL [place] # (Auto) (0.11-0.59) K/uL Eos # (Auto) (0-0.5) K/uL Baso # (Auto) (0-0.2) K/uL Sodium (136-145) mmol/L Potassium (3.5-5.1) mmol/L Chloride (98-107) mmol/L Carbon Dioxide (21-32) mmol/L Anion Gap (3-11) BUN (7-18) mg/dl Creatinine (0.6-1.2) mg/dl Est Cr Clr Drug Dosing ml/min Est GFR ( Amer) Est GFR (Non-Af Amer) BUN/Creatinine Ratio (10-20) Glucose (70-99) mg/dl POC Glucose (70-99) mg/dl Calcium (8.5-10.1) mg/dl Blood Type O Negative Antibody Screen NEGATIVE Crossmatch See Detail
--- NOTE | 2019-09-05 12:34 | Anesthesiology Progress Note ---
Date of Service September 05, 2019 Anesthesia Post Procedure Vital Signs Vital Signs: Temp Pulse Pulse Pulse Resp BP BP 09/05/19 12:12 36.6 C 96 H 16 119/77 09/05/19 07:34 36.9 C 98 H 18 118/67 09/05/19 02:38 36.9 C 94 H 16 101/66 09/04/19 23:54 118/74 09/04/19 23:20 36.6 C 91 H 16 96/59 L 09/04/19 19:42 36.5 C 92 H 16 103/70 09/04/19 18:34 36.7 C 90 16 105/69 09/04/19 17:40 36.2 C L 87 16 126/82 09/04/19 17:10 36.3 C L 84 16 118/75 09/04/19 16:35 36.5 C 86 14 134/82 09/04/19 16:20 36.7 C 88 16 102/70 09/04/19 16:10 91 H 16 116/88 09/04/19 16:00 86 16 107/83 09/04/19 15:50 84 16 120/87 09/04/19 15:42 36.3 C L 80 16 123/59 L Pulse Ox 09/05/19 12:12 91 09/05/19 07:34 91 09/05/19 02:38 91 09/04/19 23:54 09/04/19 23:20 91 09/04/19 19:42 93 09/04/19 18:34 98 09/04/19 17:40 98 09/04/19 17:10 100 09/04/19 16:35 98 09/04/19 16:20 96 09/04/19 16:10 95 09/04/19 16:00 97 09/04/19 15:50 98 09/04/19 15:42 98 Pain Intensity Back: Pain Intensity: 7 Transfer of Care Handoff Completed per policy Notes Mental Status: alert / awake / arousable and participated in evaluation Patient Amnestic to Procedure: Yes Nausea / Vomiting: adequately controlled Pain: adequately controlled Airway Patency, RR, SpO2: stable & adequate BP & HR: stable & adequate Hydration State: stable & adequate Anesthetic Complications: no major complications apparent and Pt Satisfied with anesthetic care
[2019-09-05] MEDS: ROPINIROLE HCL 0.25 MG TABLET PO SCH (21:12)
[2019-09-05] MEDS: DOCUSATE SODIUM/SENNA 50/8.6MG TAB PO SCH (21:12)
[2019-09-06] MEDS ORDERED: XOPENEX/ATROVENT 1.25mg/0.5MG NEB COMBO NEB STA (00:43)
[2019-09-06] MEDS ORDERED: IPRATROPIUM BROMIDE NEB SOLN 0.02% 2.5 ML VIAL INH STA (00:58)
[2019-09-06] MEDS ORDERED: LEVALBUTEROL 1.25MG/0.5ML NEB INH STA (00:59)
[2019-09-06 01:31] LABS: Basophils # (auto) 0.03 K/uL (0-0.2); Basophils % (auto) 0.2 %; Eosinophils # (auto) 0.05 K/uL (0-0.5); Eosinophils % (auto) 0.4 %; Hematocrit (blood only) 29.1 % (37-47); Hemoglobin 9.7 g/dL (12.0-16.0); Immature Granulocytes # (auto) 0.11 K/uL (0.00-0.02); Immature Granulocytes % (auto) 0.8 %; Lymphocytes # (auto) 2.03 K/uL (1.2-3.4); Lymphocytes % (auto) 15.4 %; Mean Corpuscular Hemoglobin 28.5 pg (25-34); Mean Corpuscular Hgb Conc 33.3 g/dL (32-36); Mean Corpuscular Volume 85.6 fL (80-100); Mean Platelet Volume 9.8 fL (7.4-10.4); Monocytes % (auto) 12.1 %; Neutrophils # (auto) 9.35 K/uL (1.4-6.5); Neutrophils % (auto) 71.1 %; Nucleated RBC # (auto) 0.03 K/uL (0-0); Nucleated RBC % (auto) 0.2 %; Platelet Count 169 K/uL (130-400); RDW Coefficient of Variation 15.2 % (11.5-14.5); RDW Standard Deviation 47.4 fL (36.4-46.3); White Blood Count 13.17 K/uL (4.8-10.8)
[2019-09-06 01:36] LABS: Base Excess ABG 0.3 mEq/L (-9-1.8); HCO3 ABG 25 mmol/L (19-24); Oxygen Saturation ABG 94.7 % (90-95); PCO2 ABG 39 mmHg (35-46); PO2 ABG 71 mmHg (80-95); pH ABG 7.42 (7.35-7.45)
[2019-09-06] MEDS: guaiFENesin 600 MG TABCR PO SCH ×3 (01:36→20:45)
[2019-09-06 01:51] LABS: Partial Thromboplastin Ratio 1.1; Partial Thromboplastin Time 31.1 Seconds (21.0-31.0)
[2019-09-06 01:52] LABS: BUN Creatinine Ratio 13.9 (10-20); Calcium 7.6 mg/dl (8.5-10.1); Creatinine Clr Calc Pharmacy 54.2 ml/min; Est GFR (Non-African American) 64.7; Magnesium 1.3 mg/dl (1.8-2.4); Potassium 4.2 mmol/L (3.5-5.1)
[2019-09-06 01:55] LABS: Allen Test POS (Pos)
[2019-09-06] MEDS ORDERED: AMPICILLIN/SULBACTAM SOD 3,000 MG in 0.9 % SODIUM CHLORIDE 100 ML IV STA (02:02)
[2019-09-06] MEDS ORDERED: SODIUM CHLORIDE 0.9% 500 ML IV ONE ×2 (02:02→07:06)
[2019-09-06] MEDS ORDERED: INSULIN GLARGINE SOLOSTAR 100 UNITS/ML 3 ML PEN SC STA ×2 (02:05→07:03)
--- NOTE | 2019-09-06 02:08 | Communication Note ---
Date of Service: September 06, 2019 Patient noted to be hypoxemic in early a.m. as per RN. O2 sats 80s on room air. Patient denies chest pain, S OB. Moist cough symptoms noted postop. No fever/chills as per patient. Coughing with meals/water intake from time to time at home. Food intermittently getting stuck at the level of stomach from time to time at home. Chest x-ray as per my interpretation : Cardiomegaly, atelectasis, no divya infiltrate AP Acute hypoxemic respiratory failure secondary to possible aspiration pneumonitis Possible sepsis Baseline ABG CS, check lactic acid IVF Unasyn for now Nebs RTC Aspiration precautions, swallow eval Will relay to AM provider.
[2019-09-06] MEDS ORDERED: AMPICILLIN/SULBACTAM CONSULT ACTIVE PRN (02:23)
[2019-09-06] MEDS: MAGNESIUM SULFATE / D5W 1 GM/100 ML BAG IV SCH ×3 (03:30→06:19)
[2019-09-06] MEDS: TRAMADOL HCL 50 MG TABLET PO PRN ×4 (03:54→19:24)
[2019-09-06] MEDS: POLYETHYLENE (MIRALAX) 17 GM PACK PO SCH ×4 (06:08→23:32)
[2019-09-06] MEDS: LOSARTAN POTASSIUM 25 MG TAB PO SCH ×2 (06:23→07:33)
[2019-09-06] MEDS: LEVOTHYROXINE SODIUM 100 MCG TABLET PO SCH (06:26)
[2019-09-06] MEDS ORDERED: XOPENEX/ATROVENT 1.25mg/0.5MG NEB COMBO NEB SCH (07:00)
--- NOTE | 2019-09-06 07:14 | XRay Report ---
XR chest 1V portable HISTORY: 73 years-old Female lwo o2 acute shortness of breath with cough COMPARISON: Chest radiograph 08/25/2019 TECHNIQUE: Portable AP view of the chest FINDINGS: Cardiac silhouette is enlarged. Widening of the mediastinum may be accentuated by technique. No pneum othorax, pleural effusion or overt pulmonary edema. Mild right hemidiaphragmatic elevation. Minimal l eft lung base densities. Degenerative changes of the shoulders and spine. IMPRESSION: 1. Cardiomegaly with new mediastinal widening, likely accentuated by technique. This finding could be correlated with follow-up PA and lateral views of the chest. 2. Minimal left lung base opacities suggest atelectasis. ACT 112: Negative or not required by law. The above report was generated using voice recognition software. It may contain grammatical, syntax o r spelling errors. Electronically signed by: Jett Webb M.D. 09/06/2019 7:12 AM
[2019-09-06] MEDS ORDERED: SODIUM CHLORIDE 0.9% 1000ML 1,000 ML IV ONE (07:22)
[2019-09-06] MEDS: INSULIN ASPART 100 UNITS/ML 3 ML PEN SC SCH ×4 (07:25→20:49)
[2019-09-06] MEDS: LEVALBUTEROL 1.25MG/0.5ML NEB INH SCH ×3 (07:28→19:46)
[2019-09-06] MEDS: IPRATROPIUM BROMIDE NEB SOLN 0.02% 2.5 ML VIAL INH SCH ×3 (07:28→19:46)
[2019-09-06] MEDS: ASPIRIN 81 MG ECTAB PO SCH (07:45)
[2019-09-06] MEDS: DULOXETINE HCL 30 MG CAP PO SCH (07:45)
[2019-09-06] MEDS: PANTOprazole 40 MG TAB PO SCH (07:45)
[2019-09-06] MEDS: MULTIVITAMIN TAB PO SCH (07:46)
--- NOTE | 2019-09-06 07:50 | Hospitalist Progress Note ---
Date of Service September 06, 2019 Assessment & Plan (1) Neurogenic claudication due to lumbar spinal stenosis: Status post L2-S1 decompression fusion POD#2 Tolerated procedure well Pain control and bowel regimen by orthopedics Activity and wound care, by orthopedics DVT prophylaxis by orthopedics - patient on aspirin for history of PFO, recommended by cardiology on preop eval - strict DVT prophylaxis needed -Monitor H&H, for postop blood loss anemia -Monitor hemodynamic status Pt hypoxic overnight - interior decorator notified - concern for poss. aspiration - lactic acid 2.2, on repeat 2.0 - blood cltx - pending, sputum cltx - pending - started on Unasyn, will cont. for now - major electrolyte abnormalities noted, Mg 1.3, Phos 1.3 (replete and monitor) - will obtain procalcitonin - pt denies having any symptoms overnight, currently on RA, comfortable (2) DVT prophylaxis: History of PFO At home on aspirin Per cardiology preop eval, strict DVT prophylaxis needed Aspirin ordered, currently using SCDs -further DVT ppx per orthopedic service (3) GERD (gastroesophageal reflux disease): History of Benites's esophagus - at home on omeprazole, will switch to pantoprazole while inpt (4) History of bleeding ulcers: No current issues, continue PPI (5) Diabetes mellitus, type 2: Seems to be well controlled on metformin at home -We will continue to monitor, and place on sliding scale insulin (6) Hypertension: Previously on lisinopril, recently switched to losartan due to insomnia believed to be secondary to lisinopril -Blood pressure currently on lower side -We will hold losartan for now, will cont. to re-evaluate (7) Hypothyroidism: - Continue home levothyroxine -No current issues (8) Hyperlipidemia: Did not tolerate statin in the past, currently diet controlled (9) BMI 39.0-39.9,adult: -Lifestyle changes encouraged (10) Depression: -Continue home duloxetine, no current issues Thank you for this consultation. We will follow the patient with you during their hospital stay. You can reach a member of the [facility] Hospitalist Team 28/01 via pager @ [phone]. Admission and Anticipated Discharge Date Admission Date: September 04, 2019 Subjective Pt became hypoxic and interior decorator notified. Concern for aspiration therefore pt started on unasyn. She was also found to have profound electrolyte abnormalities. Mg 1.3, and Phos obtained this AM only 1.3. Pt is currently sitting in the chair, on room air, in NAD. Says she does not know what happened last night, she felt fine. She does confirm "feeling junk" at her chest/ throat, since the surgery. No fevers reported. Pt has an occasional cough, very little sputum production. Review of Systems Review of Systems: All systems reviewed & are unremarkable except as noted in HPI & below Constitutional: no fever and no chills Respiratory: + cough (occasional, very little sputum production); no dyspnea Cardiovascular: no chest pain and no palpitations Gastrointestinal: no abdominal pain, no nausea and no vomiting Physical Exam Physical Exam: Elderly obese female sitting up in the chair, in NAD Constitutional: well developed, well nourished and + morbidly obese; not ill appearing Eyes: PERRL, conjunctivae normal, anicteric sclerae EOM intact bilaterally ENMT: external ear and nose normal, oropharynx normal Neck: normal visual inspection Respiratory: normal respiratory effort, lungs clear to auscultation normal respiratory effort Auscultation: no crackles, no rales, no rhonchi and no wheezes Cardiovascular: RRR, no murmur, no edema Chest (Breasts): Chest: normal inspection of chest Gastrointestinal (Abdomen): Inspection/Auscultation: abdomen normal to inspection and normal bowel sounds; abdomen not distended Percussion/Palpation: abdomen soft and + hernia; abdomen nontender and no guarding Musculoskeletal: Head/Neck/Chest: normocephalic, head atraumatic and neck supple Extremities: extremities normal to inspection Skin: no rashes, warm and dry Neurologic: PERRL, EOMI, accommodation nl, no face palsy, no dysarthria moves all extremities Psychiatric: A+Ox3, euthymic affect Results & Data ([facility]) Vital Signs (Past 12 Hours) Vital Signs Temp Pulse Pulse Resp BP Pulse Ox 09/06/19 07:31 91 H 16 94 09/06/19 06:42 37.2 C 103 H 16 103/67 92 09/06/19 06:22 103 H 140/68 09/06/19 01:12 98 H 16 97 09/05/19 23:14 37.4 C 102 H 18 148/74 H 92 Laboratory Results 09/06/19 09/06/19 09/06/19 Range/Units 08:13 08:13 07:16 WBC 12.78 H (4.8-10.8) K/uL RBC 3.23 L (4.2-5.4) M/uL Hgb 9.2 L (12.0-16.0) g/dL Hct 27.8 L (37-47) % MCV 86.1 (80-100) fL MCH 28.5 (25-34) pg MCHC 33.1 (32-36) g/dL RDW Std Deviation 47.9 H (36.4-46.3) fL RDW Coeff of Mei 15.2 H (11.5-14.5) % Plt Count 155 (130-400) K/uL MPV 9.4 (7.4-10.4) fL Immature Gran % (Auto) % Neut % (Auto) % Lymph % (Auto) % Leake % (Auto) % Eos % (Auto) % Baso % (Auto) % Immature Gran # (Auto) (0.00-0.02) K/uL Neut # (Auto) (1.4-6.5) K/uL Lymph # (Auto) (1.2-3.4) K/uL Leake # (Auto) (0.11-0.59) K/uL Eos # (Auto) (0-0.5) K/uL Baso # (Auto) (0-0.2) K/uL Absolute Nucleated RBC (0-0) K/uL Nucleated RBC % (auto) % APTT (21.0-31.0) Seconds PTT Ratio ABG pH (7.35-7.45) ABG pCO2 (35-46) mmHg ABG pO2 (80-95) mmHg ABG HCO3 (19-24) mmol/L ABG O2 Saturation (90-95) % ABG Base Excess (-9-1.8) mEq/L Asa Test (Pos) Barometric Pressure mm/Hg Oxygen Given Sodium 131 L (136-145) mmol/L Potassium 3.6 (3.5-5.1) mmol/L Chloride 99 (98-107) mmol/L Carbon Dioxide 25 (21-32) mmol/L Anion Gap 8.0 (3-11) BUN 10 (7-18) mg/dl Creatinine 0.87 (0.6-1.2) mg/dl Est Cr Clr Drug Dosing 54.8 ml/min Est GFR ( Amer) 76.1 Est GFR (Non-Af Amer) 65.6 BUN/Creatinine Ratio 12.0 (10-20) Glucose 269 H (70-99) mg/dl POC Glucose 306 H* (70-99) mg/dl Lactate (0.4-2.0) mmol/L Calcium 7.9 L (8.5-10.1) mg/dl Phosphorus 1.3 L* (2.5-4.9) mg/dl Magnesium 2.2 (1.8-2.4) mg/dl 09/06/19 09/06/19 09/06/19 Range/Units 06:54 06:50 05:55 WBC (4.8-10.8) K/uL RBC (4.2-5.4) M/uL Hgb (12.0-16.0) g/dL Hct (37-47) % MCV (80-100) fL MCH (25-34) pg MCHC (32-36) g/dL RDW Std Deviation (36.4-46.3) fL RDW Coeff of Mei (11.5-14.5) % Plt Count (130-400) K/uL MPV (7.4-10.4) fL Immature Gran % (Auto) % Neut % (Auto) % Lymph % (Auto) % Leake % (Auto) % Eos % (Auto) % Baso % (Auto) % Immature Gran # (Auto) (0.00-0.02) K/uL Neut # (Auto) (1.4-6.5) K/uL Lymph # (Auto) (1.2-3.4) K/uL Leake # (Auto) (0.11-0.59) K/uL Eos # (Auto) (0-0.5) K/uL Baso # (Auto) (0-0.2) K/uL Absolute Nucleated RBC (0-0) K/uL Nucleated RBC % (auto) % APTT (21.0-31.0) Seconds PTT Ratio ABG pH (7.35-7.45) ABG pCO2 (35-46) mmHg ABG pO2 (80-95) mmHg ABG HCO3 (19-24) mmol/L ABG O2 Saturation (90-95) % ABG Base Excess (-9-1.8) mEq/L Asa Test (Pos) Barometric Pressure mm/Hg Oxygen Given Sodium (136-145) mmol/L Potassium (3.5-5.1) mmol/L Chloride (98-107) mmol/L Carbon Dioxide (21-32) mmol/L Anion Gap (3-11) BUN (7-18) mg/dl Creatinine (0.6-1.2) mg/dl Est Cr Clr Drug Dosing ml/min Est GFR ( Amer) Est GFR (Non-Af Amer) BUN/Creatinine Ratio (10-20) Glucose (70-99) mg/dl POC Glucose 355 H* 438 H* (70-99) mg/dl Lactate 2.0 (0.4-2.0) mmol/L Calcium (8.5-10.1) mg/dl Phosphorus (2.5-4.9) mg/dl Magnesium (1.8-2.4) mg/dl 09/06/19 09/06/19 09/06/19 Range/Units 01:24 01:05 01:05 WBC (4.8-10.8) K/uL RBC (4.2-5.4) M/uL Hgb (12.0-16.0) g/dL Hct (37-47) % MCV (80-100) fL MCH (25-34) pg MCHC (32-36) g/dL RDW Std Deviation (36.4-46.3) fL RDW Coeff of Mei (11.5-14.5) % Plt Count (130-400) K/uL MPV (7.4-10.4) fL Immature Gran % (Auto) % Neut % (Auto) % Lymph % (Auto) % Leake % (Auto) % Eos % (Auto) % Baso % (Auto) % Immature Gran # (Auto) (0.00-0.02) K/uL Neut # (Auto) (1.4-6.5) K/uL Lymph # (Auto) (1.2-3.4) K/uL Leake # (Auto) (0.11-0.59) K/uL Eos # (Auto) (0-0.5) K/uL Baso # (Auto) (0-0.2) K/uL Absolute Nucleated RBC (0-0) K/uL Nucleated RBC % (auto) % APTT (21.0-31.0) Seconds PTT Ratio ABG pH 7.42 (7.35-7.45) ABG pCO2 39 (35-46) mmHg ABG pO2 71 L (80-95) mmHg ABG HCO3 25 H (19-24) mmol/L ABG O2 Saturation 94.7 (90-95) % ABG Base Excess 0.3 (-9-1.8) mEq/L Asa Test POS (Pos) Barometric Pressure 734.9 mm/Hg Oxygen Given 1 L Sodium 131 L (136-145) mmol/L Potassium 4.2 (3.5-5.1) mmol/L Chloride 98 (98-107) mmol/L Carbon Dioxide 28 (21-32) mmol/L Anion Gap 5.0 (3-11) BUN 12 (7-18) mg/dl Creatinine 0.88 (0.6-1.2) mg/dl Est Cr Clr Drug Dosing 54.2 ml/min Est GFR ( Amer) 75.0 Est GFR (Non-Af Amer) 64.7 BUN/Creatinine Ratio 13.9 (10-20) Glucose 241 H (70-99) mg/dl POC Glucose (70-99) mg/dl Lactate 2.2 H* (0.4-2.0) mmol/L Calcium 7.6 L (8.5-10.1) mg/dl Phosphorus (2.5-4.9) mg/dl Magnesium 1.3 L (1.8-2.4) mg/dl 09/06/19 09/06/19 09/05/19 Range/Units 01:05 01:05 20:26 WBC 13.17 H (4.8-10.8) K/uL RBC 3.40 L (4.2-5.4) M/uL Hgb 9.7 L (12.0-16.0) g/dL Hct 29.1 L (37-47) % MCV 85.6 (80-100) fL MCH 28.5 (25-34) pg MCHC 33.3 (32-36) g/dL RDW Std Deviation 47.4 H (36.4-46.3) fL RDW Coeff of Mei 15.2 H (11.5-14.5) % Plt Count 169 (130-400) K/uL MPV 9.8 (7.4-10.4) fL Immature Gran % (Auto) 0.8 % Neut % (Auto) 71.1 % Lymph % (Auto) 15.4 % Leake % (Auto) 12.1 % Eos % (Auto) 0.4 % Baso % (Auto) 0.2 % Immature Gran # (Auto) 0.11 H (0.00-0.02) K/uL Neut # (Auto) 9.35 H (1.4-6.5) K/uL Lymph # (Auto) 2.03 (1.2-3.4) K/uL Leake # (Auto) 1.60 H (0.11-0.59) K/uL Eos # (Auto) 0.05 (0-0.5) K/uL Baso # (Auto) 0.03 (0-0.2) K/uL Absolute Nucleated RBC 0.03 H (0-0) K/uL Nucleated RBC % (auto) 0.2 % APTT 31.1 H (21.0-31.0) Seconds PTT Ratio 1.1 ABG pH (7.35-7.45) ABG pCO2 (35-46) mmHg ABG pO2 (80-95) mmHg ABG HCO3 (19-24) mmol/L ABG O2 Saturation (90-95) % ABG Base Excess (-9-1.8) mEq/L Asa Test (Pos) Barometric Pressure mm/Hg Oxygen Given Sodium (136-145) mmol/L Potassium (3.5-5.1) mmol/L Chloride (98-107) mmol/L Carbon Dioxide (21-32) mmol/L Anion Gap (3-11) BUN (7-18) mg/dl Creatinine (0.6-1.2) mg/dl Est Cr Clr Drug Dosing ml/min Est GFR ( Amer) Est GFR (Non-Af Amer) BUN/Creatinine Ratio (10-20) Glucose (70-99) mg/dl POC Glucose 200 H (70-99) mg/dl Lactate (0.4-2.0) mmol/L Calcium (8.5-10.1) mg/dl Phosphorus (2.5-4.9) mg/dl Magnesium (1.8-2.4) mg/dl 09/05/19 09/05/19 Range/Units 17:01 12:08 WBC (4.8-10.8) K/uL RBC (4.2-5.4) M/uL Hgb (12.0-16.0) g/dL Hct (37-47) % MCV (80-100) fL MCH (25-34) pg MCHC (32-36) g/dL RDW Std Deviation (36.4-46.3) fL RDW Coeff of Mei (11.5-14.5) % Plt Count (130-400) K/uL MPV (7.4-10.4) fL Immature Gran % (Auto) % Neut % (Auto) % Lymph % (Auto) % Leake % (Auto) % Eos % (Auto) % Baso % (Auto) % Immature Gran # (Auto) (0.00-0.02) K/uL Neut # (Auto) (1.4-6.5) K/uL Lymph # (Auto) (1.2-3.4) K/uL Leake # (Auto) (0.11-0.59) K/uL Eos # (Auto) (0-0.5) K/uL Baso # (Auto) (0-0.2) K/uL Absolute Nucleated RBC (0-0) K/uL Nucleated RBC % (auto) % APTT (21.0-31.0) Seconds PTT Ratio ABG pH (7.35-7.45) ABG pCO2 (35-46) mmHg ABG pO2 (80-95) mmHg ABG HCO3 (19-24) mmol/L ABG O2 Saturation (90-95) % ABG Base Excess (-9-1.8) mEq/L Asa Test (Pos) Barometric Pressure mm/Hg Oxygen Given Sodium (136-145) mmol/L Potassium (3.5-5.1) mmol/L Chloride (98-107) mmol/L Carbon Dioxide (21-32) mmol/L Anion Gap (3-11) BUN (7-18) mg/dl Creatinine (0.6-1.2) mg/dl Est Cr Clr Drug Dosing ml/min Est GFR ( Amer) Est GFR (Non-Af Amer) BUN/Creatinine Ratio (10-20) Glucose (70-99) mg/dl POC Glucose 231 H 261 H (70-99) mg/dl Lactate (0.4-2.0) mmol/L Calcium (8.5-10.1) mg/dl Phosphorus (2.5-4.9) mg/dl Magnesium (1.8-2.4) mg/dl Medications Administered Current Inpatient Medications Acetaminophen (Tylenol) 1,000 mg PO Q8H PRN PRN Reason: MILD Pain Scale 1,2,3 & Pre PT Stop: 10/04/19 16:44 Last Admin: 09/04/19 21:56 Dose: 1,000 mg Documented by: Al Hydrox/Mg Hydrox/Simethicone (Maalox) 30 ml PO Q6H PRN PRN Reason: Dyspepsia Stop: 10/04/19 16:44 Aspirin (Ecotrin Ectab) 81 mg PO [facility] Stop: 10/05/19 08:59 Last Admin: 09/06/19 07:45 Dose: 81 mg Documented by: Bisacodyl (Dulcolax) 10 mg IA DAILY PRN PRN Reason: Constipation Stop: 10/04/19 16:44 Dextrose (Dextrose 50%) 25 - 50 ml IV UD PRN; Protocol PRN Reason: Hypoglycemia Protocol Stop: 10/04/19 17:33 Diphenhydramine HCl (Benadryl Capsule) 25 mg PO Q6H PRN PRN Reason: Allergic Rhinitis/Insomnia Stop: 10/04/19 16:44 Last Admin: 09/05/19 21:03 Dose: 25 mg Documented by: Duloxetine HCl (Cymbalta) 30 mg PO [facility] Stop: 10/05/19 08:59 Last Admin: 09/06/19 07:45 Dose: 30 mg Documented by: Famotidine (Pepcid) 20 mg PO Q12H PRN PRN Reason: Dyspepsia Stop: 10/04/19 16:44 Glucagon (Glucagen) 1 mg SQ UD PRN; Protocol PRN Reason: Hypoglycemia Protocol Stop: 10/04/19 17:33 Glucose (Dex4 Glucose) 4 - 8 tabs PO UD PRN; Protocol PRN Reason: Hypoglycemia Protocol Stop: 10/04/19 17:33 Glucose (Glucose 40%) 15 - 30 gm PO UD PRN; Protocol PRN Reason: Hypoglycemia Protocol Stop: 10/04/19 17:33 Guaifenesin (Mucinex) 600 mg PO Q12 JENNIFER Stop: 10/06/19 00:44 Last Admin: 09/06/19 07:46 Dose: 600 mg Documented by: Hydromorphone HCl (Dilaudid) 0.5 mg IV Q3H PRN PRN Reason: MOD pain (scale 4-6) & Pre PT Stop: 09/18/19 16:44 Hydromorphone HCl (Dilaudid) 1 mg IV Q3H PRN PRN Reason: severe pain (scale 7-10) Stop: 09/18/19 16:44 Hydroxyzine HCl (Vistaril) 25 mg PO Q8H PRN PRN Reason: Anxiety Stop: 10/04/19 16:44 Promethazine HCl 12.5 mg/ (Sodium Chloride) 50.5 mls @ 204 mls/hr IV Q6H PRN PRN Reason: Nausea &/or Vomiting Stop: 10/04/19 16:44 Lorazepam (Ativan) 0.5 mg in 1 mls @ 0.5 mls/min IV Q8H PRN PRN Reason: Sedation/Anxiety Stop: 10/04/19 16:44 Ampicillin Sodium/Sulbactam Sodium 3,000 mg/ Sodium Chloride 108 mls @ 216 mls/hr IV Q6H JENNIFER; Protocol Stop: 09/13/19 08:59 Sodium Chloride (Nss 1000ml) 1,000 mls @ 60 mls/hr IV .[id number] ONE Stop: 09/07/19 00:01 Last Infusion: 09/06/19 09:17 Dose: 0 mls/hr Documented by: Influenza Virus Vaccine Quadrival (Flu Vaccine, Do Not Administer) 1 ea N/A PRN PRN PRN Reason: Notification Stop: 10/04/19 16:44 Insulin Aspart (Novolog Flexpen) 0 units SC ACHS [facility] Stop: 10/06/19 07:29 Last Admin: 09/06/19 07:25 Dose: 10 units Documented by: Insulin Glargine (Lantus Solostar Pen) 10 units SC BID [facility] Stop: 10/07/19 08:59 Ipratropium [place] (Atrovent 0.02% 0.5mg/2.5ml) 0.5 mg INH Q6R [facility] Stop: 10/06/19 06:59 Last Admin: 09/06/19 07:28 Dose: 0.5 mg Documented by: Levalbuterol HCl (Xopenex 1.25mg/0.5ml Neb) 1.25 mg INH Q6R [facility] Stop: 10/06/19 06:59 Last Admin: 09/06/19 07:28 Dose: 1.25 mg Documented by: Levothyroxine Sodium (Synthroid) 100 mcg PO DAILYBB [facility] Stop: 10/05/19 06:29 Last Admin: 09/06/19 06:26 Dose: 100 mcg Documented by: Lorazepam (Ativan) 0.5 mg PO Q8H PRN PRN Reason: Sedation/Anxiety Stop: 10/04/19 16:44 [facility] [place] Stop: 10/06/19 05:14 Last Admin: 09/06/19 06:23 Dose: 25 mg Documented by: Magnesium Hydroxide (Milk Of Magnesia) 30 ml PO DAILY PRN PRN Reason: Constipation Stop: 10/04/19 16:44 Metoclopramide HCl (Reglan) 10 mg IV Q6H PRN PRN Reason: Nausea &/or Vomiting Stop: 10/04/19 16:44 Miscellaneous (Carbohydrates For Hypoglycemia) 15 - 30 gm PO UD PRN PRN Reason: Hypoglycemia Protocol Stop: 10/04/19 17:33 Miscellaneous Information (Ampicillin/Sulbactam Consult) 1 ea N/A UD PRN PRN Reason: Consult Stop: 10/06/19 02:22 Multivitamins (Multivitamin Tab) 1 tab PO [facility] Stop: 10/05/19 08:59 Last Admin: 09/06/19 07:46 Dose: 1 tab Documented by: Naloxone HCl (Narcan) 0.1 mg IV Q5M PRN; Protocol PRN Reason: Oversedation/Resp Depression Stop: 10/04/19 16:44 Ondansetron HCl (Zofran) 4 mg IV Q6H PRN PRN Reason: Nausea &/or Vomiting Stop: 10/04/19 16:44 Ondansetron HCl (Zofran Odt) 4 mg PO Q6H PRN PRN Reason: Nausea Stop: 10/04/19 16:44 Oxycodone HCl (Roxicodone Immediate Rel) 5 - 10 mg PO Q4H PRN PRN Reason: Moderate-Severe Pain & Pre PT Stop: 09/18/19 16:44 Last Admin: 09/05/19 21:03 Dose: 10 mg Documented by: Pantoprazole Sodium (Protonix) 40 mg PO QAM JENNIFER Stop: 10/05/19 08:59 Last Admin: 09/06/19 07:45 Dose: 40 mg Documented by: Pneumococcal Polyvalent Vaccine (Pneumococcal Vacc, Do Not Administer) 1 ea N/A PRN PRN PRN Reason: Notification Stop: 10/04/19 16:44 Polyethylene Glycol (Miralax Powder Packet) 17 gm PO Q6 [facility]ENN[facility]ER Stop: 10/05/19 05:59 Last Admin: 09/06/19 06:08 Dose: 17 gm Documented by: Ropinirole HCl (Requip) 0.5 mg PO HS JENNIFER Stop: 10/04/19 20:59 Last Admin: 09/05/19 21:12 Dose: 0.5 mg Documented by: Senna/Docusate Sodium (Senokot S) 2 tab PO HS JENNIFER Stop: 10/04/19 20:59 Last Admin: 09/05/19 21:12 Dose: 2 tab Documented by: Sodium Biphosphate/Sodium Phosphate (Fleet Enema) 132 ml IA ONE PRN PRN Reason: Constipation Stop: 10/04/19 16:44 Sodium Phosphate (Sodium Phosphate Replacement) 15 mmol IV NOW STA Stop: 09/06/19 09:14 Tramadol HCl (Ultram) 50 - 100 mg PO Q4H PRN PRN Reason: Moderate-Severe Pain & Pre PT Stop: 10/04/19 16:44 Last Admin: 09/06/19 07:48 Dose: 100 mg Documented by: Trazodone HCl (Desyrel) 50 mg PO HS PRN PRN Reason: Insomnia Stop: 10/04/19 16:44
--- NOTE | 2019-09-06 08:25 | Orthopedic Progress Note ---
Date of Service September 06, 2019 Assessment & Plan (1) Neurogenic claudication due to lumbar spinal stenosis: Patient is doing well postoperative day #2. We are going to continue with ambulation and gait training. Continue with GI and DVT prophylaxis as well. We will see how she does over the next 24 hours and possibly get her home tomorrow. Admission and Anticipated Discharge Date Admission Date: September 04, 2019 Subjective Patient was seen bedside in room 305. She is alert and oriented. She has some discomfort in the lower portion of her back but the legs are improving. She is tolerating p.o. without difficulties. She is not nauseous. She has no other complaints. Physical Exam Physical Exam: On exam she is alert and oriented. Her abdomen soft nontender calves are supple nontender. Sensation is intact to light touch. Dressings clean dry intact her ADRIAN drains in place and holding suction. Results & Data ([facility]) Vital Signs (Past 12 Hours) Vital Signs Temp Pulse Pulse Resp BP Pulse Ox 09/06/19 07:31 91 H 16 94 09/06/19 06:42 37.2 C 103 H 16 103/67 92 09/06/19 06:22 103 H 140/68 09/06/19 01:12 98 H 16 97 09/05/19 23:14 37.4 C 102 H 18 148/74 H 92
[2019-09-06 08:28] LABS: Hematocrit (blood only) 27.8 % (37-47); Hemoglobin 9.2 g/dL (12.0-16.0); Mean Corpuscular Hemoglobin 28.5 pg (25-34); Mean Corpuscular Hgb Conc 33.1 g/dL (32-36); Mean Corpuscular Volume 86.1 fL (80-100); Mean Platelet Volume 9.4 fL (7.4-10.4); Platelet Count 155 K/uL (130-400); RDW Coefficient of Variation 15.2 % (11.5-14.5); RDW Standard Deviation 47.9 fL (36.4-46.3); Red Blood Count 3.23 M/uL (4.2-5.4); White Blood Count 12.78 K/uL (4.8-10.8)
[2019-09-06 08:58] LABS: Calcium 7.9 mg/dl (8.5-10.1); Creatinine Clr Calc Pharmacy 54.8 ml/min; Est GFR (African American) 76.1; Est GFR (Non-African American) 65.6; Magnesium 2.2 mg/dl (1.8-2.4); Potassium 3.6 mmol/L (3.5-5.1)
[2019-09-06 09:09] LABS: Phosphorus 1.3 mg/dl (2.5-4.9)
[2019-09-06] MEDS ORDERED: SODIUM PHOSPHATE 3 MMOL/1 ML INFUSION IV STA (09:13)
[2019-09-06] MEDS ORDERED: SODIUM PHOSPHATE 15 MMOL in SODIUM CHLORIDE 0.9% 250 ML IV ONE (09:45)
[2019-09-06] MEDS: AMPICILLIN/SULBACTAM SOD 3,000 MG in 0.9 % SODIUM CHLORIDE 100 ML IV SCH ×3 (10:06→20:56)
[2019-09-06] MEDS: OXYCODONE HCL IR 5 MG TAB (IMMEDIATE RELEASE) PO PRN (11:22)
[2019-09-06] MEDS: SODIUM CHLORIDE 0.65% NA SOLN 45 ML (OCEAN) SCH ×2 (16:15→20:46)
[2019-09-06] MEDS: DOCUSATE SODIUM/SENNA 50/8.6MG TAB PO SCH (20:45)
[2019-09-06] MEDS: ROPINIROLE HCL 0.25 MG TABLET PO SCH (20:45)
[2019-09-07] MEDS: IPRATROPIUM BROMIDE NEB SOLN 0.02% 2.5 ML VIAL INH SCH ×4 (00:31→19:55)
[2019-09-07] MEDS: LEVALBUTEROL 1.25MG/0.5ML NEB INH SCH ×4 (00:31→19:56)
[2019-09-07] MEDS: AMPICILLIN/SULBACTAM SOD 3,000 MG in 0.9 % SODIUM CHLORIDE 100 ML IV SCH (02:07)
[2019-09-07] MEDS: TRAMADOL HCL 50 MG TABLET PO PRN ×3 (04:22→18:27)
[2019-09-07] MEDS: LEVOTHYROXINE SODIUM 100 MCG TABLET PO SCH (04:22)
[2019-09-07] MEDS: POLYETHYLENE (MIRALAX) 17 GM PACK PO SCH ×3 (04:23→17:55)
[2019-09-07 05:04] LABS: Hematocrit (blood only) 24.4 % (37-47); Hemoglobin 8.2 g/dL (12.0-16.0); Mean Corpuscular Hgb Conc 33.6 g/dL (32-36); Mean Corpuscular Volume 86.2 fL (80-100); Mean Platelet Volume 9.6 fL (7.4-10.4); Platelet Count 144 K/uL (130-400); RDW Coefficient of Variation 15.4 % (11.5-14.5); RDW Standard Deviation 48.5 fL (36.4-46.3); Red Blood Count 2.83 M/uL (4.2-5.4); White Blood Count 9.45 K/uL (4.8-10.8)
[2019-09-07 05:36] LABS: BUN Creatinine Ratio 13.7 (10-20); Calcium 7.5 mg/dl (8.5-10.1); Creatinine Clr Calc Pharmacy 64.4 ml/min; Est GFR (African American) 92.5; Est GFR (Non-African American) 79.8; Magnesium 2.1 mg/dl (1.8-2.4); Phosphorus 1.7 mg/dl (2.5-4.9); Potassium 3.5 mmol/L (3.5-5.1)
--- NOTE | 2019-09-07 07:35 | Anesthesiology Progress Note ---
Date of Service September 07, 2019 Anesthesia Post Procedure Vital Signs Vital Signs: Temp Pulse Resp BP BP Pulse Ox 09/07/19 06:58 36.8 C 85 18 120/75 95 09/07/19 06:56 85 18 95 09/07/19 00:31 92 H 16 85 L 09/06/19 23:23 36.7 C 93 H 18 107/69 92 09/06/19 19:46 92 H 16 90 09/06/19 15:30 36.9 C 97 H 14 123/76 93 09/06/19 13:49 96 H 16 96 Pain Intensity Back: Pain Intensity: 5 Notes Mental Status: alert / awake / arousable and participated in evaluation Nausea / Vomiting: adequately controlled Pain: adequately controlled Airway Patency, RR, SpO2: stable & adequate BP & HR: stable & adequate Hydration State: stable & adequate Anesthetic Complications: no major complications apparent and Pt Satisfied with anesthetic care
[2019-09-07] MEDS: ACETAMINOPHEN 500 MG TAB PO PRN ×2 (07:38→19:33)
[2019-09-07] MEDS: LOSARTAN POTASSIUM 25 MG TAB PO SCH (07:42)
[2019-09-07] MEDS: DULOXETINE HCL 30 MG CAP PO SCH (07:44)
[2019-09-07] MEDS: ASPIRIN 81 MG ECTAB PO SCH (07:44)
[2019-09-07] MEDS: guaiFENesin 600 MG TABCR PO SCH ×2 (07:45→21:00)
[2019-09-07] MEDS: MULTIVITAMIN TAB PO SCH (07:45)
[2019-09-07] MEDS: SODIUM CHLORIDE 0.65% NA SOLN 45 ML (OCEAN) SCH ×2 (07:46→21:00)
[2019-09-07] MEDS: PANTOprazole 40 MG TAB PO SCH (07:46)
[2019-09-07] MEDS: INSULIN GLARGINE SOLOSTAR 100 UNITS/ML 3 ML PEN SC SCH ×2 (07:54→21:03)
[2019-09-07] MEDS: INSULIN ASPART 100 UNITS/ML 3 ML PEN SC SCH ×4 (07:59→21:05)
[2019-09-07] MEDS ORDERED: INSULIN GLARGINE SOLOSTAR 100 UNITS/ML 3 ML PEN SC SCH (09:00)
[2019-09-07] MEDS ORDERED: AMOXICILLIN/CLAVULANATE 875 MG TAB PO ONE (09:00)
[2019-09-07] MEDS ORDERED: POTASSIUM PHOS 3 MMOL/1 ML INFUSION IV STA (10:48)
--- NOTE | 2019-09-07 10:51 | Hospitalist Progress Note ---
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 aspiration - lactic acid 2.2, on repeat 2.0 - blood cltx - pending, sputum cltx - pending - started on Unasyn, will cont. for now - major electrolyte abnormalities noted, Mg 1.3, Phos 1.3 (replete and monitor) - will obtain procalcitonin - abnormal cxr - per radiology likely d/t technique, may want to repeat w/ l ateral views prior to discharge - pt denies having any symptoms overnight, currently on RA, comfortable - continues to have no complaints - possibly may need sleep apnea study as outpt (2) DVT prophylaxis: History of PFO At home on aspirin Per cardiology preop eval, strict DVT prophylaxis needed Aspirin ordered, currently using SCDs -further DVT ppx per orthopedic service (3) GERD (gastroesophageal reflux disease): History of Benites's esophagus - at home on omeprazole, will switch to pantoprazole while inpt (4) History of bleeding ulcers: No current issues, continue PPI (5) Diabetes mellitus, type 2: Seems to be well controlled on metformin at home -We will continue to monitor, and place on sliding scale insulin (6) Hypertension: Previously on lisinopril, recently switched to losartan due to insomnia believed to be secondary to lisinopril -Blood pressure currently on lower side -We will hold losartan for now, will cont. to re-evaluate (7) Hypothyroidism: - Continue home levothyroxine -No current issues (8) Hyperlipidemia: Did not tolerate statin in the past, currently diet controlled (9) BMI 39.0-39.9,adult: -Lifestyle changes encouraged (10) Depression: -Continue home duloxetine, no current issues Thank you for this consultation. We will follow the patient with you during their hospital stay. You can reach a member of the [facility] Hospitalist Team 24/7 via pager @ [phone]. Admission and Anticipated Discharge Date Admission Date: September 04, 2019 Subjective Pt is lying in bed in NAD. Notified by nursing staff that BP was low. Ordered 500cc of NS. Then notified by nursing staff that when used manual cuff for BP check, her BP was normal, even slightly elevated. Pt has no complaints and says she feels well overall. Review of Systems Review of Systems: All systems reviewed & are unremarkable except as noted in HPI & below Constitutional: no fever and no chills Respiratory: + cough (occasional, very little sputum production); no dyspnea Cardiovascular: no chest pain and no palpitations Gastrointestinal: no abdominal pain and no vomiting Physical Exam Physical Exam: Elderly obese female sitting up in the chair, in NAD Constitutional: well developed, well nourished and + morbidly obese; not ill appearing Eyes: PERRL, conjunctivae normal, anicteric sclerae EOM intact bilaterally ENMT: external ear and nose normal, oropharynx normal Neck: normal visual inspection Respiratory: normal respiratory effort, lungs clear to auscultation normal respiratory effort Auscultation: no crackles, no rales, no rhonchi and no wheezes Cardiovascular: RRR, no murmur, no edema Chest (Breasts): Chest: normal inspection of chest Gastrointestinal (Abdomen): Inspection/Auscultation: abdomen normal to inspection and normal bowel sounds; abdomen not distended Percussion/Palpation: abdomen soft and + hernia; abdomen nontender and no guarding Musculoskeletal: Head/Neck/Chest: normocephalic, head atraumatic and neck supple Extremities: extremities normal to inspection Skin: no rashes, warm and dry Neurologic: PERRL, EOMI, accommodation nl, no face palsy, no dysarthria moves all extremities Psychiatric: A+Ox3, euthymic affect Results & Data ([facility]) Vital Signs (Past 12 Hours) Vital Signs Temp Pulse Pulse Resp BP BP Pulse Ox 09/07/19 09:30 36.8 C 98 H 85 18 120/75 107/69 95 09/07/19 06:58 36.8 C 85 18 120/75 95 09/07/19 06:56 85 18 95 09/07/19 00:31 92 H 16 85 L 09/06/19 23:23 36.7 C 93 H 18 107/69 92 Laboratory Results 09/07/19 09/07/19 09/07/19 Range/Units 06:55 04:43 04:43 WBC (4.8-10.8) K/uL RBC (4.2-5.4) M/uL Hgb (12.0-16.0) g/dL Hct (37-47) % MCV (80-100) fL MCH (25-34) pg MCHC (32-36) g/dL RDW Std Deviation (36.4-46.3) fL RDW Coeff of Mei (11.5-14.5) % Plt Count (130-400) K/uL MPV (7.4-10.4) fL Sodium 133 L (136-145) mmol/L Potassium 3.5 (3.5-5.1) mmol/L Chloride 102 (98-107) mmol/L Carbon Dioxide 25 (21-32) mmol/L Anion Gap 6.0 (3-11) BUN 10 (7-18) mg/dl Creatinine 0.74 (0.6-1.2) mg/dl Est Cr Clr Drug Dosing 64.4 ml/min Est GFR ( Amer) 92.5 Est GFR (Non-Af Amer) 79.8 BUN/Creatinine Ratio 13.7 (10-20) Glucose 190 H (70-99) mg/dl POC Glucose 224 H (70-99) mg/dl Calcium 7.5 L (8.5-10.1) mg/dl Phosphorus 1.7 L (2.5-4.9) mg/dl Magnesium 2.1 (1.8-2.4) mg/dl Procalcitonin 0.25 (0-0.5) ng/ml Crossmatch 09/07/19 09/06/19 09/06/19 Range/Units 04:43 20:31 17:00 WBC 9.45 (4.8-10.8) K/uL RBC 2.83 L (4.2-5.4) M/uL Hgb 8.2 L (12.0-16.0) g/dL Hct 24.4 L (37-47) % MCV 86.2 (80-100) fL MCH 29.0 (25-34) pg MCHC 33.6 (32-36) g/dL RDW Std Deviation 48.5 H (36.4-46.3) fL RDW Coeff of Mei 15.4 H (11.5-14.5) % Plt Count 144 (130-400) K/uL MPV 9.6 (7.4-10.4) fL Sodium (136-145) mmol/L Potassium (3.5-5.1) mmol/L Chloride (98-107) mmol/L Carbon Dioxide (21-32) mmol/L Anion Gap (3-11) BUN (7-18) mg/dl Creatinine (0.6-1.2) mg/dl Est Cr Clr Drug Dosing ml/min Est GFR ( Amer) Est GFR (Non-Af Amer) BUN/Creatinine Ratio (10-20) Glucose (70-99) mg/dl POC Glucose 210 H 203 H (70-99) mg/dl Calcium (8.5-10.1) mg/dl Phosphorus (2.5-4.9) mg/dl Magnesium (1.8-2.4) mg/dl Procalcitonin (0-0.5) ng/ml Crossmatch 09/06/19 09/04/19 Range/Units 12:02 10:14 WBC (4.8-10.8) K/uL RBC (4.2-5.4) M/uL Hgb (12.0-16.0) g/dL Hct (37-47) % MCV (80-100) fL MCH (25-34) pg MCHC (32-36) g/dL RDW Std Deviation (36.4-46.3) fL RDW Coeff of Mei (11.5-14.5) % Plt Count (130-400) K/uL MPV (7.4-10.4) fL Sodium (136-145) mmol/L Potassium (3.5-5.1) mmol/L Chloride (98-107) mmol/L Carbon Dioxide (21-32) mmol/L Anion Gap (3-11) BUN (7-18) mg/dl Creatinine (0.6-1.2) mg/dl Est Cr Clr Drug Dosing ml/min Est GFR ( Amer) Est GFR (Non-Af Amer) BUN/Creatinine Ratio (10-20) Glucose (70-99) mg/dl POC Glucose 222 H (70-99) mg/dl Calcium (8.5-10.1) mg/dl Phosphorus (2.5-4.9) mg/dl Magnesium (1.8-2.4) mg/dl Procalcitonin (0-0.5) ng/ml Crossmatch See Detail Medications Administered Current Inpatient Medications Acetaminophen (Tylenol) 1,000 mg PO Q8H PRN PRN Reason: MILD Pain Scale 1,2,3 & Pre PT Stop: 10/04/19 16:44 Last Admin: 09/07/19 07:38 Dose: 1,000 mg Documented by: Al Hydrox/Mg Hydrox/Simethicone (Maalox) 30 ml PO Q6H PRN PRN Reason: Dyspepsia Stop: 10/04/19 16:44 Amoxicillin/Clavulanate Potassium (Augmentin 875mg) [facility] Stop: 09/13/19 23:59 Aspirin (Ecotrin Ectab) 81 mg PO [facility] Stop: 10/05/19 08:59 Last Admin: 09/07/19 07:44 Dose: 81 mg Documented by: Bisacodyl (Dulcolax) 10 mg WI DAILY PRN PRN Reason: Constipation Stop: 10/04/19 16:44 Dextrose (Dextrose 50%) 25 - 50 ml IV UD PRN; Protocol PRN Reason: Hypoglycemia Protocol Stop: 10/04/19 17:33 Diphenhydramine HCl (Benadryl Capsule) 25 mg PO Q6H PRN PRN Reason: Allergic Rhinitis/Insomnia Stop: 10/04/19 16:44 Last Admin: 09/06/19 14:36 Dose: 25 mg Documented by: Duloxetine HCl (Cymbalta) 30 mg PO [facility] Stop: 10/05/19 08:59 Last Admin: 09/07/19 07:44 Dose: 30 mg Documented by: Famotidine (Pepcid) 20 mg PO Q12H PRN PRN Reason: Dyspepsia Stop: 10/04/19 16:44 Glucagon (Glucagen) 1 mg SQ UD PRN; Protocol PRN Reason: Hypoglycemia Protocol Stop: 10/04/19 17:33 Glucose (Dex4 Glucose) 4 - 8 tabs PO UD PRN; Protocol PRN Reason: Hypoglycemia Protocol Stop: 10/04/19 17:33 Glucose (Glucose 40%) 15 - 30 gm PO UD PRN; Protocol PRN Reason: Hypoglycemia Protocol Stop: 10/04/19 17:33 Guaifenesin (Mucinex) 600 mg PO Q12 [facility] Stop: 10/06/19 00:44 Last Admin: 09/07/19 07:45 Dose: 600 mg Documented by: Hydromorphone HCl (Dilaudid) 0.5 mg IV Q3H PRN PRN Reason: MOD pain (scale 4-6) & Pre PT Stop: 09/18/19 16:44 Hydromorphone HCl (Dilaudid) 1 mg IV Q3H PRN PRN Reason: severe pain (scale 7-10) Stop: 09/18/19 16:44 Hydroxyzine HCl (Vistaril) 25 mg PO Q8H PRN PRN Reason: Anxiety Stop: 10/04/19 16:44 Promethazine HCl 12.5 mg/ (Sodium Chloride) 50.5 mls @ 204 mls/hr IV Q6H PRN PRN Reason: Nausea &/or Vomiting Stop: 10/04/19 16:44 Lorazepam (Ativan) 0.5 mg in 1 mls @ 0.5 mls/min IV Q8H PRN PRN Reason: Sedation/Anxiety Stop: 10/04/19 16:44 Influenza Virus Vaccine Quadrival (Flu Vaccine, Do Not Administer) 1 ea N/A PRN PRN PRN Reason: Notification Stop: 10/04/19 16:44 Insulin Aspart (Novolog Flexpen) 0 units SC ACHS [facility] Stop: 10/06/19 07:29 Last Admin: 09/07/19 07:59 Dose: 4 units Documented by: Insulin Glargine (Lantus Solostar Pen) 10 units SC BID [facility] Stop: 10/07/19 08:59 Last Admin: 09/07/19 07:54 Dose: 10 units Documented by: Ipratropium [place] (Atrovent 0.02% 0.5mg/2.5ml) 0.5 mg INH Q6R [facility] Stop: 10/06/19 06:59 Last Admin: 09/07/19 06:56 Dose: 0.5 mg Documented by: Levalbuterol HCl (Xopenex 1.25mg/0.5ml Neb) 1.25 mg INH Q6R [facility] Stop: 10/06/19 06:59 Last Admin: 09/07/19 06:56 Dose: 1.25 mg Documented by: Levothyroxine Sodium (Synthroid) 100 mcg PO DAILYBB [facility] Stop: 10/05/19 06:29 Last Admin: 09/07/19 04:22 Dose: 100 mcg Documented by: Lorazepam (Ativan) 0.5 mg PO Q8H PRN PRN Reason: Sedation/Anxiety Stop: 10/04/19 16:44 Losartan Potassium (Cozaar) 25 mg PO [facility] Stop: 10/06/19 05:14 Last Admin: 09/07/19 07:42 Dose: 25 mg Documented by: Magnesium Hydroxide (Milk Of Magnesia) 30 ml PO DAILY PRN PRN Reason: Constipation Stop: 10/04/19 16:44 Metoclopramide HCl (Reglan) 10 mg IV Q6H PRN PRN Reason: Nausea &/or Vomiting Stop: 10/04/19 16:44 Miscellaneous (Carbohydrates For Hypoglycemia) 15 - 30 gm PO UD PRN PRN Reason: Hypoglycemia Protocol Stop: 10/04/19 17:33 Multivitamins (Multivitamin Tab) 1 tab PO [facility] Stop: 10/05/19 08:59 Last Admin: 09/07/19 07:45 Dose: 1 tab Documented by: Naloxone HCl (Narcan) 0.1 mg IV Q5M PRN; Protocol PRN Reason: Oversedation/Resp Depression Stop: 10/04/19 16:44 Ondansetron HCl (Zofran) 4 mg IV Q6H PRN PRN Reason: Nausea &/or Vomiting Stop: 10/04/19 16:44 Ondansetron HCl (Zofran Odt) 4 mg PO Q6H PRN PRN Reason: Nausea Stop: 10/04/19 16:44 Oxycodone HCl (Roxicodone Immediate Rel) 5 - 10 mg PO Q4H PRN PRN Reason: Moderate-Severe Pain & Pre PT Stop: 09/18/19 16:44 Last Admin: 09/06/19 11:22 Dose: 10 mg Documented by: Pantoprazole Sodium (Protonix) 40 mg PO [facility] Stop: 10/05/19 08:59 Last Admin: 09/07/19 07:46 Dose: 40 mg Documented by: Pneumococcal Polyvalent Vaccine (Pneumococcal Vacc, Do Not Administer) 1 ea N/A PRN PRN PRN Reason: Notification Stop: 10/04/19 16:44 Polyethylene Glycol (Miralax Powder Packet) 17 gm PO Q6 [facility]ENN[facility] Stop: 10/05/19 05:59 Last Admin: 09/07/19 04:23 Dose: Not Given Documented by: Potassium Phosphate (Potassium Phosphate Replace) 15 mmol IV NOW STA Stop: 09/07/19 10:49 Ropinirole HCl (Requip) 0.5 mg PO HS [facility] Stop: 10/04/19 20:59 Last Admin: 09/06/19 20:45 Dose: 0.5 mg Documented by: Senna/Docusate Sodium (Senokot S) 2 tab PO HS [facility] Stop: 10/04/19 20:59 Last Admin: 09/06/19 20:45 Dose: 2 tab Documented by: Sodium Biphosphate/Sodium Phosphate (Fleet Enema) 132 ml WI ONE PRN PRN Reason: Constipation Stop: 10/04/19 16:44 Sodium Chloride ([place] Nasal) 1 sprays NA BID [facility]ENN[facility]ER Stop: 10/06/19 16:04 Last Admin: 09/07/19 07:46 Dose: 1 sprays Documented by: Tramadol HCl (Ultram) 50 - 100 mg PO Q4H PRN PRN Reason: Moderate-Severe Pain & Pre PT Stop: 10/04/19 16:44 Last Admin: 09/07/19 08:49 Dose: 100 mg Documented by: Trazodone HCl (Desyrel) 50 mg PO HS PRN PRN Reason: Insomnia Stop: 10/04/19 16:44
[2019-09-07] MEDS ORDERED: POTASSIUM PHOSPHATE 15 MMOL in SODIUM CHLORIDE 0.9% 250 ML IV ONE (11:00)
[2019-09-07] MEDS: OXYCODONE HCL IR 5 MG TAB (IMMEDIATE RELEASE) PO PRN (11:20)
--- NOTE | 2019-09-07 14:51 | Discharge Summary ---
Date of Service September 07, 2019 Admission HPI Per Admitting Provider This is a 73-year-old female who presents with chronic persistent back and bilateral leg pain. After failing extensive course of nonoperative care she is here for surgical intervention. Principal Diagnosis Lumbar spinal stenosis with neurogenic claudication Discharge Data Allergies Allergy/AdvReac Type Severity Reaction Status Date / Time niacin Allergy Intermediate HIVES Verified 09/04/19 10:21 morphine Allergy Mild NAUSEA/VOMI Verified 09/04/19 10:21 TING/HIVES codeine Allergy Unknown HIVES Unverified 09/04/19 10:21 Consultations 09/04/19 16:45 Consult Case Management - Discharge Planning Routine Consult Hospitalist Routine Procedures Performed Operation Date: 09/04/19 12:05 Actual Procedures p L2-S1 Decompression Fusion, Bone Morphogenetic Protein, Spinal Cord Monitoring(Not Applicable) - Serg Jacome DO Ordered Studies 09/04/19 07:00 FL fluoroscopy <1hr Routine FL lumbar spine 2-3V Routine Hospital Course (1) Neurogenic claudication due to lumbar spinal stenosis: Patient underwent multilevel lumbar decompression fusion tolerated this well was taken to orthopedic for postoperative. Postop 1 she was up and ambulating progressed to postop day #2 postop day #3 ADRIAN drain decreasing appropriately. Leg pain well controlled. Subsequently was discharged to rehab. Patient's discharge orders instructions can be found the chart for further view. Total Time Total Time Spent Total Time Spent (In Minutes): 20 minutes Discharge Plan Discharge Items Patient Disposition: Transfer Inpatient Rehab Fac Reason For Visit: Spinal Stenosis, Lumbar Region without Neurogenic Discharge Diagnosis: Lumbar spinal stenosis with neurogenic claudication Activity: As commented below Non-emergency contact: Primary Care Provider Call non-emergency contact if: you have any medication questions Follow-up/Referrals: Gregory Howard MD [Primary Care Provider] - Diet: Regular Addtl Attending Provider Instructions: ACTIVITY RECOMMENDATIONS: SELF CARE INSTRUCTIONS AFTER THORACIC/LUMBAR FUSIONS 1. You may walk to your tolerance. It is good exercise for your legs and back. Expect some back and intermittent leg aches and pains. 2. You may perform "counter-top" level activities (make a sandwich, cornelius with a project, etc.). 3. No bending or lifting of more than 10 pounds or back twisting of any nature (roll like a log when turning in bed). 4. You may ride in a car for 20-30 minutes at a time. No driving until after your first visit with your doctor. 5. Frequent changes of position and restricting sitting to 30 minutes at a time will help limit the amount of back spasms and stiffness you may experience. 6. You may discontinue the use of ambulatory aids (cane, crutches, etc.) once your strength and confidence allow. 7. You may chin strap cutter the shower and let water strike your incision when you arrive home at least once daily. Do not take a tub bath, sit in a hot tub or go into a swimming pool until after your first recheck in the office. SPECIAL CARE INSTRUCTIONS: VERY IMPORTANT TO READ AND REVIEW A. Your surgical incision has been closed with a cosmetic suture under the skin that will dissolve in about 6 weeks. In 14 days, you can use a pair of clean scissors and cut the suture that is left outside of the skin at the ends of your incision. 1. The small skin tapes can be removed 7 days after surgery if they have not fallen off by that point. 2. You may keep the wound open to air as much as possible to promote healing after post-op day number 5 unless told otherwise by your doctor. 3. If you think the wound looks like it is becoming infected (redness or worsening drainage) and/or you are experiencing fever, chill or worsening back pain and muscle spasms, contact the office so that we may evaluate you as soon as possible. B. Complications are uncommon, but please contact us if you have any signs or symptoms of: 1. wound infection (fever higher than 102.5 degrees F, redness, separation of wound, drainage, or increasing pain from the incision) 2. blood clots in legs (pain, swelling, redness and warmth in legs) 3. urinary tract infection (fever higher than 102.5 degrees F, burning upon urination or increased frequency of urination) 4. nerve problems (inability to walk on your toes or heels, numbness, loss of bowel or bladder control) 5. any other symptoms that concern you C. Please call the office at if you have any concerns or questions about your operation or recovery. D. No smoking! Smoking drastically decreases the chance of a solid fusion. E. Do not take any anti-inflammatory medications (Indocin, Advil, Motrin, Aspirin, Naprosyn, etc.) as these may inhibit the chance of a solid fusion. Tylenol is okay to take for pain. MANAGING PAIN AFTER SPINAL SURGERY 1. Narcotic medication is intended for short-term use and will be provided for surgical pain. Surgical pain usually lasts for a period of 4-6 weeks. Narcotic medication includes Percocet, Vicodin, Darvocet, Tylenol #3 or Lortab. 2. Longer-term pain is more appropriately treated with non-narcotic medication such as Tylenol ES. 3. Muscle spasm is not appropriately treated with narcotics. Muscle relaxers such as Soma, Flexeril or Skelaxin can be used along with Tylenol ES. 4. Remember that we all live with some "aches and pains". This is not unusual or uncommon after an injury or as we get older. a. Back pain is expected and may include muscle spasms for 4 to 6 weeks after surgery. The pain should gradually improve. If the pain worsens for no apparent reason, please contact the office. b. Intermittent leg pain may also be experienced and should not be concerned about unless it worsens for no apparent reason. If so, please contact the office. 5. We will provide appropriate medication within the normal guidelines of their prescribed use. We will also be very cautious and aware of potential abuse and extended duration of patients' medication needs. a. Pain medications are for your comfort and to assist with sleep and rest so that the tissue can heal. They are not provided in order to return to normal activity and should not be used through the day. To do so or worsening pain at night can result from ongoing tissue damage and development of tolerance to the prescribed medicine. 6. Please allow 2-3 days to process refills. Prescriptions will not be mailed but must be picked up at the office. FOLLOW UP VISIT: Keep your scheduled follow-up appointment. Any questions, please call the office at . Pending Studies at Discharge: No Stand-Alone Forms: My [employer], Opioid Pain Management Skilled Items Patient informed of condition?: Yes DNR: No Discharge Level of Care: Acute rehab Communicable Disease: No Discharge Prognosis: Improving Lines: None Urinary Catheter: No Medications and DC Order Prescriptions: New tramadol 50 mg tablet 50 mg PO Q6H PRN (Reason: pain, moderate) Qty: 30 RF: 0 oxycodone 5 mg tablet 5 mg PO Q6H PRN (Reason: pain, severe) Qty: 20 RF: 0 Continued multivitamin Tablet 1 tab PO QAM RF: 0 trazodone 50 mg Tablet 50 mg PO HS PRN (Reason: Insomnia) RF: 0 aspirin [Aspirin Low Dose] 81 mg Tablet,Delayed Release (Dr/Ec) 81 mg PO QAM RF: 0 levothyroxine 100 mcg Tablet 100 mcg PO QAM RF: 0 metformin 1,000 mg Tablet 1,000 mg PO BID RF: 0 ropinirole 0.5 mg Tablet 0.5 mg PO HS RF: 0 losartan 25 mg Tablet 25 mg PO QAM RF: 0 ergocalciferol (vitamin D2) [Vitamin D2] 1,250 mcg (50,000 unit) Capsule 1,250 mcg PO MONTHLY RF: 0 duloxetine 30 mg Capsule,Delayed Release(Dr/Ec) 30 mg PO QAM RF: 0 omeprazole 20 mg Tablet,Delayed Release (Dr/Ec) 20 mg PO QAM RF: 0 omega 7-leo-dhl-fish oil [Fish Oil] 1,000 mg (120 mg-180 mg) Capsule 1 cap PO DAILY RF: 0 Purelife Keto 1 tab PO QPM RF: 0 Discharge Orders: Discharge Order (Routine); Ordered 09/07/19 Ordered By: Serg Tejada/Other Patient Handouts: Back How Works, Back Pain Relieve, Back Safety Into and Out Bed, Fusion Spinal Admission Data Admit Date/Time: 09/04/19 15:59 Attending Provider: Serg Jacome Admit Provider: Serg Jacome Primary Care Provider: Gregory Howard Other Providers: Serg Jacome ; William Mix ; [facility] Other Interventions: Discharge Summary Assessment (RN) Last Done: 09/07/19 09:30
[2019-09-07] MEDS ORDERED: SODIUM CHLORIDE 0.9% 500 ML IV SCH (15:45)
[2019-09-07 16:57] LABS: Hematocrit (blood only) 24.8 % (37-47); Hemoglobin 8.1 g/dL (12.0-16.0)
[2019-09-07] MEDS: AMOXICILLIN/CLAVULANATE 875 MG TAB PO SCH (17:54)
[2019-09-07] MEDS: ROPINIROLE HCL 0.25 MG TABLET PO SCH (21:00)
[2019-09-07] MEDS: DOCUSATE SODIUM/SENNA 50/8.6MG TAB PO SCH (21:00)
[2019-09-08] MEDS: IPRATROPIUM BROMIDE NEB SOLN 0.02% 2.5 ML VIAL INH SCH ×3 (01:02→13:54)
[2019-09-08] MEDS: LEVALBUTEROL 1.25MG/0.5ML NEB INH SCH ×3 (01:02→13:54)
[2019-09-08] MEDS: LEVOTHYROXINE SODIUM 100 MCG TABLET PO SCH (04:23)
[2019-09-08 06:09] LABS: Hematocrit (blood only) 24.9 % (37-47); Hemoglobin 8.1 g/dL (12.0-16.0)
[2019-09-08 06:40] LABS: BUN Creatinine Ratio 15.1 (10-20); Calcium 7.8 mg/dl (8.5-10.1); Creatinine Clr Calc Pharmacy 68.1 ml/min; Est GFR (African American) 98.9; Est GFR (Non-African American) 85.4; Phosphorus 2.1 mg/dl (2.5-4.9); Potassium 3.8 mmol/L (3.5-5.1)
[2019-09-08] MEDS: AMOXICILLIN/CLAVULANATE 875 MG TAB PO SCH (08:25)
[2019-09-08] MEDS: LOSARTAN POTASSIUM 25 MG TAB PO SCH (08:26)
[2019-09-08] MEDS: DULOXETINE HCL 30 MG CAP PO SCH (08:26)
[2019-09-08] MEDS: ASPIRIN 81 MG ECTAB PO SCH (08:27)
[2019-09-08] MEDS: guaiFENesin 600 MG TABCR PO SCH (08:27)
[2019-09-08] MEDS: PANTOprazole 40 MG TAB PO SCH (08:27)
[2019-09-08] MEDS: SODIUM CHLORIDE 0.65% NA SOLN 45 ML (OCEAN) SCH (08:27)
[2019-09-08] MEDS: MULTIVITAMIN TAB PO SCH (08:27)
[2019-09-08] MEDS: INSULIN ASPART 100 UNITS/ML 3 ML PEN SC SCH ×2 (08:34→13:30)
[2019-09-08] MEDS: INSULIN GLARGINE SOLOSTAR 100 UNITS/ML 3 ML PEN SC SCH (08:35)
[2019-09-08] MEDS ORDERED: POTASSIUM PHOS 3 MMOL/1 ML INFUSION IV STA (10:12)
[2019-09-08] MEDS ORDERED: POTASSIUM PHOSPHATE 15 MMOL in SODIUM CHLORIDE 0.9% 250 ML IV ONE (10:30)
[2019-09-08] MEDS: TRAMADOL HCL 50 MG TABLET PO PRN (10:35)
--- NOTE | 2019-09-08 11:23 | XRay Report ---
XR chest 2V PA/lateral HISTORY: follow up abnormal cxr COMPARISON: Chest 09/06/2019. FINDINGS: No pleural effusions. No pneumothorax. Posterior fusion hardware seen within the lumbar spi ne. The heart is normal in size. No mediastinal widening. Mild chronic interstitial thickening. No ne w focal lung consolidations to suggest pneumonia. No evidence for pulmonary edema. IMPRESSION: 1. No mediastinal widening. 2. Mild diffuse interstitial thickening which is likely chronic. ACT 112: Negative or not required by law. Electronically signed by: Jairo Herman M.D. 09/08/2019 11:21 AM
--- NOTE | 2019-09-08 12:25 | Hospitalist Progress Note ---
Date of Service September 08, 2019 Assessment & Plan Admission and Anticipated Discharge Date Admission Date: September 04, 2019 Results & Data ([facility]) Vital Signs (Past 12 Hours) Vital Signs Temp Pulse Pulse Resp BP Pulse Ox 09/08/19 06:55 84 16 98 09/08/19 06:36 36.9 C 72 20 112/74 95 09/08/19 01:04 77 18 94 Laboratory Results 09/08/19 09/08/19 09/08/19 Range/Units 12:03 06:31 05:52 Hgb (12.0-16.0) g/dL Hct (37-47) % Sodium 136 (136-145) mmol/L Potassium 3.8 (3.5-5.1) mmol/L Chloride 105 (98-107) mmol/L Carbon Dioxide 27 (21-32) mmol/L Anion Gap 4.0 (3-11) BUN 11 (7-18) mg/dl Creatinine 0.70 (0.6-1.2) mg/dl Est Cr Clr Drug Dosing 68.1 ml/min Est GFR ( Amer) 98.9 Est GFR (Non-Af Amer) 85.4 BUN/Creatinine Ratio 15.1 (10-20) Glucose 193 H (70-99) mg/dl POC Glucose 188 H 178 H (70-99) mg/dl Calcium 7.8 L (8.5-10.1) mg/dl Phosphorus 2.1 L (2.5-4.9) mg/dl Magnesium 2.0 (1.8-2.4) mg/dl Hepatitis C Ab Screen (Neg) 09/08/19 09/08/19 09/07/19 Range/Units 05:52 05:52 20:57 Hgb 8.1 L (12.0-16.0) g/dL Hct 24.9 L (37-47) % Sodium (136-145) mmol/L Potassium (3.5-5.1) mmol/L Chloride (98-107) mmol/L Carbon Dioxide (21-32) mmol/L Anion Gap (3-11) BUN (7-18) mg/dl Creatinine (0.6-1.2) mg/dl Est Cr Clr Drug Dosing ml/min Est GFR ( Amer) Est GFR (Non-Af Amer) BUN/Creatinine Ratio (10-20) Glucose (70-99) mg/dl POC Glucose 219 H (70-99) mg/dl Calcium (8.5-10.1) mg/dl Phosphorus (2.5-4.9) mg/dl Magnesium (1.8-2.4) mg/dl Hepatitis C Ab Screen Neg (Neg) 09/07/19 09/07/19 Range/Units 17:23 16:46 Hgb 8.1 L (12.0-16.0) g/dL Hct 24.8 L (37-47) % Sodium (136-145) mmol/L Potassium (3.5-5.1) mmol/L Chloride (98-107) mmol/L Carbon Dioxide (21-32) mmol/L Anion Gap (3-11) BUN (7-18) mg/dl Creatinine (0.6-1.2) mg/dl Est Cr Clr Drug Dosing ml/min Est GFR ( Amer) Est GFR (Non-Af Amer) BUN/Creatinine Ratio (10-20) Glucose (70-99) mg/dl POC Glucose 186 H (70-99) mg/dl Calcium (8.5-10.1) mg/dl Phosphorus (2.5-4.9) mg/dl Magnesium (1.8-2.4) mg/dl Hepatitis C Ab Screen (Neg) Medications Administered Current Inpatient Medications Acetaminophen (Tylenol) 1,000 mg PO Q8H PRN PRN Reason: MILD Pain Scale 1,2,3 & Pre PT Stop: 10/04/19 16:44 Last Admin: 09/07/19 19:33 Dose: 1,000 mg Documented by: Al Hydrox/Mg Hydrox/Simethicone (Maalox) 30 ml PO Q6H PRN PRN Reason: Dyspepsia Stop: 10/04/19 16:44 Amoxicillin/Clavulanate Potassium (Augmentin 875mg) 1 tab PO BIDM [facility] Stop: 09/13/19 23:59 Last Admin: 09/08/19 08:25 Dose: 1 tab Documented by: Aspirin (Ecotrin Ectab) 81 mg PO QAM [facility] Stop: 10/05/19 08:59 Last Admin: 09/08/19 08:27 Dose: 81 mg Documented by: Bisacodyl (Dulcolax) 10 mg CO DAILY PRN PRN Reason: Constipation Stop: 10/04/19 16:44 Dextrose (Dextrose 50%) 25 - 50 ml IV UD PRN; Protocol PRN Reason: Hypoglycemia Protocol Stop: 10/04/19 17:33 Diphenhydramine HCl (Benadryl Capsule) 25 mg PO Q6H PRN PRN Reason: Allergic Rhinitis/Insomnia Stop: 10/04/19 16:44 Last Admin: 09/07/19 11:22 Dose: 25 mg Documented by: Duloxetine HCl (Cymbalta) 30 mg PO QAM [facility] Stop: 10/05/19 08:59 Last Admin: 09/08/19 08:26 Dose: 30 mg Documented by: Famotidine (Pepcid) 20 mg PO Q12H PRN PRN Reason: Dyspepsia Stop: 10/04/19 16:44 Glucagon (Glucagen) 1 mg SQ UD PRN; Protocol PRN Reason: Hypoglycemia Protocol Stop: 10/04/19 17:33 Glucose (Dex4 Glucose) 4 - 8 tabs PO UD PRN; Protocol PRN Reason: Hypoglycemia Protocol Stop: 10/04/19 17:33 Glucose (Glucose 40%) 15 - 30 gm PO UD PRN; Protocol PRN Reason: Hypoglycemia Protocol Stop: 10/04/19 17:33 Guaifenesin (Mucinex) 600 mg PO Q12 [facility] Stop: 10/06/19 00:44 Last Admin: 09/08/19 08:27 Dose: 600 mg Documented by: Hydromorphone HCl (Dilaudid) 0.5 mg IV Q3H PRN PRN Reason: MOD pain (scale 4-6) & Pre PT Stop: 09/18/19 16:44 Hydromorphone HCl (Dilaudid) 1 mg IV Q3H PRN PRN Reason: severe pain (scale 7-10) Stop: 09/18/19 16:44 Hydroxyzine HCl (Vistaril) 25 mg PO Q8H PRN PRN Reason: Anxiety Stop: 10/04/19 16:44 Promethazine HCl 12.5 mg/ (Sodium Chloride) 50.5 mls @ 204 mls/hr IV Q6H PRN PRN Reason: Nausea &/or Vomiting Stop: 10/04/19 16:44 Lorazepam (Ativan) 0.5 mg in 1 mls @ 0.5 mls/min IV Q8H PRN PRN Reason: Sedation/Anxiety Stop: 10/04/19 16:44 Potassium Phosphate 15 mmol/ (Sodium Chloride) 255 mls @ 88 mls/hr IV TODAY@1030 ONE Stop: 09/08/19 13:23 Last Admin: 09/08/19 11:52 Dose: 88 mls/hr Documented by: Influenza Virus Vaccine Quadrival (Flu Vaccine, Do Not Administer) 1 ea N/A PRN PRN PRN Reason: Notification Stop: 10/04/19 16:44 Insulin Aspart (Novolog Flexpen) 0 units SC ACHS [facility] Stop: 10/06/19 07:29 Last Admin: 09/08/19 08:34 Dose: 9 units Documented by: Insulin Glargine (Lantus Solostar Pen) 10 units SC BID [facility] Stop: 10/07/19 08:59 Last Admin: 09/08/19 08:35 Dose: 10 units Documented by: Ipratropium [place] (Atrovent 0.02% 0.5mg/2.5ml) 0.5 mg INH Q6R [facility] Stop: 10/06/19 06:59 Last Admin: 09/08/19 06:56 Dose: 0.5 mg Documented by: Levalbuterol HCl (Xopenex 1.25mg/0.5ml Neb) 1.25 mg INH Q6R [facility] Stop: 10/06/19 06:59 Last Admin: 09/08/19 06:56 Dose: 1.25 mg Documented by: Levothyroxine Sodium (Synthroid) 100 mcg PO DAILYBB [facility] Stop: 10/05/19 06:29 Last Admin: 09/08/19 04:23 Dose: 100 mcg Documented by: Lorazepam (Ativan) 0.5 mg PO Q8H PRN PRN Reason: Sedation/Anxiety Stop: 10/04/19 16:44 Losartan Potassium (Cozaar) 25 mg PO QAM [facility] Stop: 10/06/19 05:14 Last Admin: 09/08/19 08:26 Dose: 25 mg Documented by: Magnesium Hydroxide (Milk Of Magnesia) 30 ml PO DAILY PRN PRN Reason: Constipation Stop: 10/04/19 16:44 Metoclopramide HCl (Reglan) 10 mg IV Q6H PRN PRN Reason: Nausea &/or Vomiting Stop: 10/04/19 16:44 Miscellaneous (Carbohydrates For Hypoglycemia) 15 - 30 gm PO UD PRN PRN Reason: Hypoglycemia Protocol Stop: 10/04/19 17:33 Multivitamins (Multivitamin Tab) 1 tab PO QAM [facility] Stop: 10/05/19 08:59 Last Admin: 09/08/19 08:27 Dose: 1 tab Documented by: Naloxone HCl (Narcan) 0.1 mg IV Q5M PRN; Protocol PRN Reason: Oversedation/Resp Depression Stop: 10/04/19 16:44 Ondansetron HCl (Zofran) 4 mg IV Q6H PRN PRN Reason: Nausea &/or Vomiting Stop: 10/04/19 16:44 Ondansetron HCl (Zofran Odt) 4 mg PO Q6H PRN PRN Reason: Nausea Stop: 10/04/19 16:44 Oxycodone HCl (Roxicodone Immediate Rel) 5 - 10 mg PO Q4H PRN PRN Reason: Moderate-Severe Pain & Pre PT Stop: 09/18/19 16:44 Last Admin: 09/07/19 11:20 Dose: 10 mg Documented by: Pantoprazole Sodium (Protonix) [facility] [place] Stop: 10/05/19 08:59 Last Admin: 09/08/19 08:27 Dose: 40 mg Documented by: Pneumococcal Polyvalent Vaccine (Pneumococcal Vacc, Do Not Administer) 1 ea N/A PRN PRN PRN Reason: Notification Stop: 10/04/19 16:44 Ropinirole HCl (Requip) 0.5 mg PO [facility] Stop: 10/04/19 20:59 Last Admin: 09/07/19 21:00 Dose: 0.5 mg Documented by: Senna/Docusate Sodium (Senokot S) 2 tab PO [facility] Stop: 10/04/19 20:59 Last Admin: 09/07/19 21:00 Dose: Not Given Documented by: Sodium Biphosphate/Sodium Phosphate (Fleet Enema) 132 ml CO ONE PRN PRN Reason: Constipation Stop: 10/04/19 16:44 Sodium Chloride ([place] Nasal) 1 sprays NA BID [facility] Stop: 10/06/19 16:04 Last Admin: 09/08/19 08:27 Dose: 1 sprays Documented by: Tramadol HCl (Ultram) 50 - 100 mg PO Q4H PRN PRN Reason: Moderate-Severe Pain & Pre PT Stop: 10/04/19 16:44 Last Admin: 09/08/19 10:35 Dose: 100 mg Documented by: Trazodone HCl (Desyrel) 50 mg PO HS PRN PRN Reason: Insomnia Stop: 10/04/19 16:44
--- NOTE | 2019-09-08 13:39 | Orthopedic Progress Note ---
Date of Service September 08, 2019 Assessment & Plan (1) Neurogenic claudication due to lumbar spinal stenosis: This time we will get to new physical therapy [facility]. Present on Admission?: Yes Admission and Anticipated Discharge Date Admission Date: September 04, 2019 Subjective Patient's back pain is controlled leg symptoms are markedly improved. Physical Exam Physical Exam: Patient is good strength testing appears comfortable. Results & Data ([facility]) Vital Signs (Past 12 Hours) Vital Signs Temp Pulse Pulse Resp BP Pulse Ox 09/08/19 06:55 84 16 98 09/08/19 06:36 36.9 C 72 20 112/74 95
== END 2019-09-08 15:14 | DRG 453 ==
LOC: ASU 09:46 → SUATTDRO 15:59 → 3E 15:59